=== PATIENT | male | born 1955 | race Caucasian/White ===

== ENCOUNTER → 2023-12-08 14:19 | Outpatient (REF) | payer MEDICARE, OTHER, SELFPAY | LOC: RAD 14:19 | PROVIDERS: ATTENDING PHYSICIAN Nurse Practitioner Family | DX: R05.3 Chronic cough (principal) | CPT/HCPCS: 71046 ==

== ENCOUNTER → 2023-12-09 14:33 | Outpatient (REF) | payer MEDICARE, OTHER, SELFPAY ==
[2023-12-09 14:59] LABS: % Basophils 0.6 % (0-2); % Eosinophils 0.4 % (0-6); % Immature Granulocytes 0.2 % (0-0.5); % Lymphocytes 20.4 % (20.5-51.1); % Monocytes 4.5 % (1.7-9.3); % Neutrophils 73.9 % (42.2-75.2); Absolute Basophils 0.1 10^3/uL (0-0.2); Absolute Lymphocytes 2.1 10^3/uL (1.2-3.4); Absolute Monocytes 0.5 10^3/uL (0.1-0.6); Absolute Neutrophils 7.5 10^3/uL (1.4-6.5); Hematocrit 39.8 % (39.0-52.0); Mean Corp Hgb Conc. 32.7 g/dL (33.0-37.0); Mean Corpuscular Hgb 28.3 pg (27.0-31.0); Mean Corpuscular Volume 86.7 fL (80.0-94.0); Mean Platelet Volume 10.2 fL (7.4-10.4); Nucleated Red Blood Cells % 0 % (-); Platelet Count 257 10^3/uL (130-400); Red Blood Cell Count 4.59 10^6/uL (4.70-6.10); White Blood Cell Count 10.1 10^3/uL (4.8-10.8)
[2023-12-09 15:34] LABS: ALT (SGPT) 13 U/L (0-50); AST (SGOT) 21 U/L (17-59); Alkaline Phosphatase 124 U/L (38-126); Blood Urea Nitrogen 16 mg/dl (9-20); Calcium 9.5 mg/dl (8.4-10.2); Carbon Dioxide 27 mmol/L (22-30); Chloride 101 mmol/L (98-107); Glucose 87 mg/dl (70-99); Potassium 4.3 mmol/L (3.5-5.1); Sodium 137 mmol/L (135-145); Total Bilirubin 0.8 mg/dl (0.2-1.3); Total Protein 7.1 g/dl (6.3-8.2); eGFR > 60.00
== END ==
LOC: REG 14:33
PROVIDERS: ATTENDING PHYSICIAN Nurse Practitioner Family
DX: R93.89 Abnormal findings on diagnostic imaging of other specified body structures (principal); R91.8 Other nonspecific abnormal finding of lung field
CPT/HCPCS: 36415; 80053; 85025

== ENCOUNTER → 2023-12-10 11:38 | Outpatient (REF) | payer MEDICARE, OTHER, SELFPAY | LOC: RAD 11:38 | PROVIDERS: ATTENDING PHYSICIAN Nurse Practitioner Family | DX: R93.89 Abnormal findings on diagnostic imaging of other specified body structures (principal); R91.8 Other nonspecific abnormal finding of lung field | CPT/HCPCS: 71260; Q9967 ==

== ENCOUNTER 2023-12-31 16:10 | Inpatient (IN) | payer MEDICARE, OTHER, SELFPAY ==
[2023-12-31] VITALS (7 sets, daily range): BP systolic 137–177; BP diastolic 91–110; BMI 23.2
[2023-12-31 13:47] LABS: % Basophils 0.9 % (0-2); % Eosinophils 1.1 % (0-6); % Immature Granulocytes 0.2 % (0-0.5); % Lymphocytes 30.1 % (20.5-51.1); % Monocytes 5.7 % (1.7-9.3); Absolute Basophils 0.1 10^3/uL (0-0.2); Absolute Eosinophils 0.1 10^3/uL (0-0.7); Absolute Lymphocytes 2.7 10^3/uL (1.2-3.4); Absolute Monocytes 0.5 10^3/uL (0.1-0.6); Absolute Neutrophils 5.6 10^3/uL (1.4-6.5); Hematocrit 45.1 % (39.0-52.0); Hemoglobin 14.7 g/dL (13.0-18.0); Mean Corp Hgb Conc. 32.6 g/dL (33.0-37.0); Mean Corpuscular Hgb 28.9 pg (27.0-31.0); Mean Corpuscular Volume 88.6 fL (80.0-94.0); Mean Platelet Volume 10.5 fL (7.4-10.4); Nucleated Red Blood Cells % 0 % (-); Platelet Count 261 10^3/uL (130-400); Red Blood Cell Count 5.09 10^6/uL (4.70-6.10); Red Cell Dist. Width 14.1 % (11.5-14.5); White Blood Cell Count 9.1 10^3/uL (4.8-10.8)
[2023-12-31 14:01] LABS: INR 1.01; PT 13.3 Sec (11.4-14.6)
[2023-12-31 14:16] LABS: Troponin I < 0.012 ng/ml
[2023-12-31 14:18] LABS: ALT (SGPT) 17 U/L (0-50); AST (SGOT) 27 U/L (17-59); Albumin 4.5 g/dl (3.5-5.0); Alkaline Phosphatase 115 U/L (38-126); Blood Urea Nitrogen 18 mg/dl (9-20); Calcium 9.9 mg/dl (8.4-10.2); Carbon Dioxide 24 mmol/L (22-30); Chloride 106 mmol/L (98-107); Glucose 94 mg/dl (70-99); Potassium 4.3 mmol/L (3.5-5.1); Sodium 141 mmol/L (135-145); Total Bilirubin 0.8 mg/dl (0.2-1.3); Total Protein 7.3 g/dl (6.3-8.2); eGFR 55.09
--- NOTE | 2023-12-31 14:39 | ED.GENMED ---
History of Present Illness
General
Chief Complaint: Cardiac Symptoms
Time Seen by Provider: 12/31/23 14:16
History of Present Illness
History of Present Illness:
68-year-old male presents to the emergency department for evaluation of abnormal echocardiogram. He notes he has had persistent shortness of breath for the past several weeks after having what he felt was an upper respiratory tract infection.
During the workup for his URI symptoms he had outpatient chest x-ray showing a right lung nodule that had follow-up PET imaging on 12/22 that was unremarkable. Was sent for outpatient echo today and this showed EF of 30% with severe hypokinesis. he
denies leg swelling but does admit to some orthopnea. No chest pain or exertional chest pain
Past History
Past History
ED Past Medical History: Other (Psoriatic arthritis no longer on meds)
ED Past Surgical History: None
Social History
Tobacco: Non-smoker
Alcohol: None
Drug: None
Personal:
Living: with family
Employment: Employed
Review of Systems
Review of Systems
Allergies reviewed?: Yes
All Other Systems: ROS reviewed and negative except as documented in HPI and ROS
Phy Exam
Physical Exam
Physical Exam:
GEN: Well appearing, NAD, WDWN
Eyes: PERRLA, EOMs intact, no scleral icterus
HENT: NCAT, oral mucosa moist, no JVD
Lungs: Normal resp effort. Bibasilar crackles
Cardiac: Tachycardic, no murmurs
Abdomen: S, NT, ND, NABS, no masses or hepatosplenomegaly
Neuro: AO x 3
MSK: No gross deformity or ecchymosis. No edema. No digital clubbing
Skin: No rashes, petechiae. Normal color, no pallor or jaundice.
Psych: Calm, cooperative, proper hygiene
Course
Orders/Labs/Results
Orders:
Orders
12/31/23 13:29
Electrocardiogram (*1) Urgent
Reason for Study: Abnormal EKG
12/31/23 13:30
EKG- Treatment ONCE
12/31/23 13:39
Complete Blood Count/With Diff Urgent
Comprehensive Metabolic Panel Urgent
NT-proBNP Urgent
Comment: ADD ON
PT/INR [Prothrombin Time] Urgent
Troponin I Urgent
12/31/23 14:28
Add On- LAB Urgent
Tests Added?: BNP
CR Chest - 2 Views Urgent
Comment:
Reason For Exam: SOB/CHF
12/31/23 14:42
Furosemide [Lasix] 40 mg IV NOW STA
Abnormal Lab Results
12/31/23
13:39
MCHC 32.6 L g/dL
(33.0-37.0)
MPV 10.5 H fL
(7.4-10.4)
Creatinine 1.4 H mg/dL
(0.7-1.3)
12/31/23 13:39
12/31/23 13:39
Vital Signs
Initial and Last Documented VS:
Initial Vital Signs
Temp Pulse Resp BP Pulse Ox
98.0 F 104 16 170/110 98
12/31/23 13:28 12/31/23 13:28 12/31/23 13:28 12/31/23 13:28 12/31/23 13:28
Last Documented Vital Signs
Temp Pulse Resp BP Pulse Ox
98.0 F 111 25 177/96 98
12/31/23 13:28 12/31/23 14:30 12/31/23 14:30 12/31/23 14:25 12/31/23 13:28
MDM/Problems Addressed
MDM/Problems Addressed:
CXR shows pulmonary edema, will start diuresis and admit for further evaluation and management
*Critical Care Note
Total Time (30-74mins, 75-104mins- exclusive of procedures): Not Applicable
ED Attending Note
-
Portions of this chart may have been created with voice recognition software.� Occasional wrong word or��sound alike� substitutions may have occurred due to the inherent limitations of voice recognition software.
Discharge Plan
Departure
Patient Disposition: Admit
Date of Disposition: 12/31/23
Time of Disposition: 14:48
Admit to: Med/Surg
Presentation/result/management discussed w/ accepting MD/DO: Hospitalist
Discharge Problem:
Acute HFrEF (heart failure with reduced ejection fraction)
Prescriptions:
No Action
azithromycin 250 mg Tablet
0 mg PO .COMPLEX
Rx Instructions:
For 250 mg dose pack: take 500 mg today (day 1), then 250 mg for 4 days (days 2-5)
diphenhydramine HCl [Benadryl] 25 mg Capsule
25 - 50 mg PO HS PRN (Reason: insomnia)
NyQuil D 6.09-93-89-500 mg/15 mL Liquid
10 - 15 ml PO HSPRN PRN (Reason: Insomnia)
albuterol sulfate 90 mcg/actuation Hfa Aerosol Inhaler
2 puff INHALATION PRN PRN (Reason: SOB, Wheezes)
Referrals:
Keaton Hernandez MD [Family Provider] -
Interventions
Interventions:
*Risk Screen - Suicide Last Done: 12/31/23 14:30
*General Assessment Last Done: 12/31/23 14:30
*Neglect/Abuse Screening Last Done: 12/31/23 14:30
*ED COVID-19 Vaccine History Last Done: 12/31/23 14:30
ED- Pulmonary Assessment Last Done: 12/31/23 14:30
ED- Cardiac Assessment Last Done: 12/31/23 14:30
Discharge Date and Time
Print Language: GREENLANDIC
--- NOTE | 2023-12-31 14:44 | CON.CAR ---
Consultation
Consultation Request
Date/Time Consultation Requested: 12/31/2023
Date/Time Consultation Performed: 12/31/2023
Requesting Provider: Dr. Sorto
Performing Provider: Dr. Cuadra
Reason for Consultation: CHF
Medical History
-
Chief Complaint: Shortness of breath
History of Present Illness:
68-year-old male (Snagger) with psoriasis and restrictive lung disease who was referred to the ER after undergoing an abnormal echocardiogram which was ordered by his Manometer Technician today. The patient states that he has been experiencing
shortness of breath over the past month with an associated cough. His echocardiogram today revealed an LVEF of 30-35% with normal regional wall motion abnormalities, moderate MR, and mild to moderate TR, with PASP of 50-55 mmHg. His previous echo
in 2011 revealed an LVEF of 45-50%, but the patient states that he was never told that he had mild heart failure. He denies any recent chest pain or palpitations. He has not noticed any lower extremity swelling.
Past Medical History
Past Medical History: Other (Psoriasis, restrictive lung disease)
Past Surgical History: Other (Rhinoplasty, inguinal hernia repair, cleft palate repair, lipoma removal)
Social History
Tobacco: Non-Smoker
Alcohol: Occasional
Drug: None
Personal: (, at bedside)
Living: With Family
Family History
Family History: CAD (Father had an CO in his 50s and shortly thereafter)
Allergies / Home Medications
Allergy/AdvReac Type Severity Reaction Status Date / Time
infliximab [From Remicade] AdvReac demylination Verified 12/31/23 13:29
of optic
nerve
�Medication �Instructions �Recorded �Confirmed �Type
albuterol sulfate 90 mcg/actuation 2 puff inhalation PRN PRN SOB, 12/30/23 12/30/23 History
aerosol inhaler Wheezes
azithromycin 250 mg tablet 0 mg PO .COMPLEX 12/30/23 12/30/23 History
diphenhydramine HCl 25 mg capsule 25 - 50 mg PO HS PRN insomnia 12/30/23 12/30/23 History
(Benadryl)
vyjisqvil-GWP-PA-acetaminophen 10 - 15 ml PO HSPRN PRN Insomnia 12/30/23 12/30/23 History
6.25 mg-30 [id number]/15mL oral
liqd
Review of Systems
-
All other systems: Negative unless noted
Physical Exam
Vital Signs
Temp Pulse Resp BP Pulse Ox
98.0 F 111 25 177/96 98
12/31/23 13:28 12/31/23 14:30 12/31/23 14:30 12/31/23 14:25 12/31/23 13:28
Lab Results
12/31/23 13:39
12/31/23 13:39
Troponin I < 0.012 ng/ml 12/31/23 13:39
Physical Exam
General: Well Developed, Well Nourished and No Apparent Distress
HEENT: Normocephalic
Respiratory: Clear
Cardiac: S1/S2, Regular Rhythm and Murmur (06/27)
Breast: N/A
GI: Soft and Non Tender
Rectal: Deferred by Provider
Musculoskeletal: No Edema
Skin: Warm and Dry
Neuro: AO x 3
Psych: Calm
Impression / Plan
-
68-year-old male (Snagger) with psoriasis and restrictive lung disease who was referred to the ER after undergoing an abnormal echocardiogram which was ordered by his Manometer Technician today. The patient states that he has been experiencing
shortness of breath over the past month with an associated cough. His echocardiogram today revealed an LVEF of 30-35% with normal regional wall motion abnormalities, moderate MR, and mild to moderate TR, with PASP of 50-55 mmHg. His previous echo
in 2011 revealed an LVEF of 45-50%, but the patient states that he was never told that he had mild heart failure. Found to have mild renal insufficiency today with a creatinine of 1.4.
Acute HFrEF (dilated LV with EF 30-35%):
-With regional wall motion abnormalities, highly concerning for multivessel coronary artery disease.
-Diagnostic cardiac catheterization (right and left heart) will be arranged for tomorrow; NPO after midnight.
-Patient will need to be started on GDMT.
-Recommend Lasix 20 mg IV daily for now.
-Recommend starting Toprol-XL 25 mg daily.
-Give full dose aspirin 325 mg today, then start aspirin 81 mg daily.
-Check lipid panel and hemoglobin A1c.
-monitor worker.
Mild renal insufficiency:
-Creatinine 1.4 on admission.
-Will hold off on starting an JOEY inhibitor/ARB, spironolactone, or Entresto for now.
-Continue to monitor renal function.
Valvular heart disease (moderate MR, mild to moderate TR):
-IV Lasix as above.
Pulmonary nodule/restrictive lung disease:
-Patient was to undergo bronchoscopy at some point in the near future; recommendations/management as per Pulmonary.
Psoriasis:
-Notable risk factor for heart disease.
-Outpatient management with rheumatology.
Data Reviewed
-
EKG: Report Reviewed by me (Sinus rhythm)
Medical Tests (Nuc Med, Echo etc): Image Personally Visualized and interpreted (Dilated LV, LVEF 30-35%; moderate MR; mild to moderate TR, PASP 50-55 mmHg.)
Labs: Labs Reviewed by me and Discussed with Physician (Manometer Technician)
Old Records: Reviewed (Recent pulmonary office record)
[2023-12-31] MEDS: LASIX 40 MG IV ×2 (14:48→21:45)
[2023-12-31 14:51] LABS: NT-proBNP 4850 pg/ml
--- NOTE | 2023-12-31 14:59 | HPS.HSE ---
Family Physician
<AFTAB Almeida - Last Filed: 12/31/23 15:44>
-
Family Physician: Keaton Hernandez
Chief Complaint
<AFTAB Almeida - Last Filed: 12/31/23 15:44>
-
Persistent shortness of breath, cough
History of Present Illness
68-year-old male complaining of persistent shortness of breath with a chronic productive cough changing in color in the beginning of November. He reports he had episode of hemoptysis was sent by his nurse practitioner for outpatient chest x-ray which
showed a right pulmonary nodule he was then referred to pulmonary Dr. Pulido had CT scan showing a primary right lung nodule then had additional PET scan which was normal. He reports pulmonary wanted to do a biopsy via bronchoscopy but wanted
preop evaluation by cardiology. Today he had outpatient EKG with echo showing an ejection fraction of 30% with suspected CHF and was sent to ER for evaluation. He reports he was started yesterday on Z-Sean by his PCP of which she took 500 mg for
this chronic productive cough. He states he smoked only 1 to 2 years in his teens. He denies family history of lung cancer states maternal grandmother had TB. He denies current fever, chills, weight loss, chest pain, palpitations, abdominal pain,
nausea, vomiting, diarrhea, urinary symptoms.
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
Cat bite right hand June 2023 treated empirically with antibiotics.
Medical History
<AFTAB Almeida - Last Filed: 12/31/23 15:44>
Past Medical History
Past Medical History: Reports Other
Additional Past Medical History:
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
BPH
Cat bite right hand June 2023 treated empirically with antibiotics.
Insomnia
Past Surgical History: Reports Other
Additional Past Surgical History:
cleft palate repair as a child
Social History
Tobacco: Former Smoker (Smoked 1 to 2 years as a teenager)
Alcohol: Occasional (Every 6 months)
Drug: None
Living: With Family
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
Family History
Family History: Other (Maternal grandmother TB, father CAD [place] age 72)
Allergies / Home Medications
Allergies reflects when Allergies were last updated in [employer].
Home Medications with original date entered in [employer]
Allergy/Medication List:
Allergies
Allergy/AdvReac Type Severity Reaction Status Date / Time
infliximab [From Remicade] AdvReac demylination Verified 12/31/23 13:29
of optic
nerve
Home Medications
azithromycin 250 mg tablet 250 mg PO NOON 12/30/23
diphenhydramine HCl 25 mg capsule (Benadryl) 25 mg PO HSPRN PRN insomnia 12/30/23
mvhlolcjl-YLH-UK-acetaminophen 6.25 mg-30 va-[id number]-490uj/15mL oral liqd 5 ml PO HSPRN PRN Insomnia 12/30/23
Review of Systems
Raullt;AFTAB Almeida - Last Filed: 12/31/23 15:44>
-
History Source: Patient and Family ( Jurgen at bedside)
A 12 point ROS was completed and negative except as noted: Yes
Constitutional: Denies Fever, Weight Loss or Fatigue
EENT: Denies Sore Throat
Respiratory: Reports Cough and Trouble Breathing
Cardiac: Denies Chest Pain, Diaphoresis, Palpitations or Syncope
Abdomen/GI: Denies Abdominal Pain, Nausea, Vomiting, Diarrhea or Constipated
: Denies Dysuria, Frequency, Flank Pain, Incontinence or Difficulty Voiding
Musculoskeletal: Denies Joint Pain or Edema
Skin: Denies Itching or Rash
Neurological: Denies Dizzy, Headache or Weakness
Endocrine: Reports No Symptoms
Hematologic/Lymphatic: Reports No Symptoms
Psych: Reports Calm
Physical Exam
<AFTAB Almeida - Last Filed: 12/31/23 15:44>
Vital Signs
Vital Signs
Temp Pulse Resp BP Pulse Ox
98.0 F 111 25 177/96 98
12/31/23 13:28 12/31/23 14:30 12/31/23 14:30 12/31/23 14:25 12/31/23 13:28
Physical Exam
General: Comfortable and Conversant; No Pain, Fever or Chills
HEENT: NormoCephalic, Anicteric, Moist mucous membranes, PERRLA and [place] Conjunctivae
Respiratory: Clear; No Wheezes, Rales or Rhonchi
Cardiac: S1/S2 and Regular Rhythm; No Murmur, Rub, Gallop or Peripheral Edema
Breast: Deferred by me
GI: Soft, Non Tender, Non Distended, Normal Bowel Sounds and No Hepatosplenomegaly
Rectal: Deferred by Provider
Genito-urinary: Deferred by me
Musculoskeletal: No Clubbing, No Cyanosis and No Edema
Skin: Warm and Dry; No Rash
Neuro: AO x 3, No Motor Deficits, Nonfocal/grossly intact, Cranial Nerves Intact and No Sensory Deficits; No DTR's Intact & Symmetrical, Slurred Speech, Facial Droop, Tremors or Sedated
Psych: Calm
Laboratory Results
<AFTAB Almeida - Last Filed: 12/31/23 15:44>
-
12/31/23 13:39
12/31/23 13:39
Laboratory Results
PT 13.3 Sec (11.4-14.6) 12/31/23 13:39
INR 1.01 12/31/23 13:39
Total Bilirubin 0.8 mg/dl (0.2-1.3) 12/31/23 13:39
AST 27 U/L (17-59) 12/31/23 13:39
ALT 17 U/L (0-50) 12/31/23 13:39
Alkaline Phosphatase 115 U/L (38-126) 12/31/23 13:39
Troponin I < 0.012 ng/ml 12/31/23 13:39
Data Reviewed
<AFTAB Almeida - Last Filed: 12/31/23 15:44>
-
Lab Data: Labs Reviewed by me
Impression/Plan
<AFTAB Almeida - Last Filed: 12/31/23 15:44>
-
Impression/plan:
Admit to IMU
#Acute CHF NEW /NEW CARDIOMYOPATHY EF 30-35%
BNP 4850, 98% RA
I/O, daily weights
-Consult CBC cardiology
- Iv Lasix 40 mg bid
- KCL 20 meq daily
-Carvedilol 3.125 mg twice daily
-N.p.o. for possible cath in a.m.
-Further goal-directed medical therapy for HF to be decided
2D echo 12/31/2023: EF 30-35%, dilated left ventricle 6.1 cm.
Mild to moderate global hypokinesis with more prominent severe basal to mid anteroseptal, inferior septal and inferior hypokinesis.
Severely dilated left atrium. Moderate dilated right atrium
Moderate MR
Aortic sclerosis without stenosis. Mild aortic regurg
Mild to moderate TR
Pulm arterial pressure 50-55 mmHg
--- Previous echo 01/07/2012 EF 45-50% no wall abnormalities--
#Right and left pulmonary nodules�NEW
-Patient follows with Dr. Pulido plan was for bronchoscopy with biopsy after cardiac eval
PET scan 12/10/2023: 5 mm solid pulmonary nodule in the right lower lobe.
14 x 7 mm solid pulmonary nodule in the right lower lobe.
8 mm solid pulmonary nodule in the left lower lobe nodules are without evidence of significant FDG uptake small bilateral pleural effusions
#URI November 2023 with persistent cough
Was started on Z-Sean yesterday for cough we will hold as do not suspect pneumonia patient afebrile no WBC count
#Prolonged QTc�470 MS
-Hold prolonging QTc agents
EKG: Sinus tach 106 bpm, QTc 470 MS no significant change from December 29, 2023
#Hypertension�new
177/96
- START Carvedilol 3.125 mg twice daily
#CKD 3A
Creat 1.4 baseline appears 1.2
follow bmp
#Hx psoriatic arthritis
-Was on Remicade 20 years ago where he had demyelinization of the right optic nerve and therefore was discontinued
#BPH
Continue finasteride with hold parameters
-Monitor urine output with bladder scans
DVT prophylaxis
Subcu Lovenox
Full code
<Anika Joyner MD - Last Filed: 12/31/23 16:08>
-
Impression/plan:
Admit to IMU
#Acute CHF NEW /NEW CARDIOMYOPATHY EF 30-35%
BNP 4850, 98% RA
I/O, daily weights
-Consult CBC cardiology
- Iv Lasix 40 mg bid
- KCL 20 meq daily
-Carvedilol 3.125 mg twice daily
-N.p.o. for possible cath in a.m.
-Further goal-directed medical therapy for HF to be decided
2D echo 12/31/2023: EF 30-35%, dilated left ventricle 6.1 cm.
Mild to moderate global hypokinesis with more prominent severe basal to mid anteroseptal, inferior septal and inferior hypokinesis.
Severely dilated left atrium. Moderate dilated right atrium
Moderate MR
Aortic sclerosis without stenosis. Mild aortic regurg
Mild to moderate TR
Pulm arterial pressure 50-55 mmHg
--- Previous echo 01/07/2012 EF 45-50% no wall abnormalities--
#Right and left pulmonary nodules�NEW
-Patient follows with Dr. Pulido plan was for bronchoscopy with biopsy after cardiac eval
PET scan 12/10/2023: 5 mm solid pulmonary nodule in the right lower lobe.
14 x 7 mm solid pulmonary nodule in the right lower lobe.
8 mm solid pulmonary nodule in the left lower lobe nodules are without evidence of significant FDG uptake small bilateral pleural effusions
#URI November 2023 with persistent cough
Was started on Z-Sean yesterday for cough we will hold as do not suspect pneumonia patient afebrile no WBC count
#Prolonged QTc�470 MS
-Hold prolonging QTc agents
EKG: Sinus tach 106 bpm, QTc 470 MS no significant change from December 29, 2023
#Hypertension�new
177/96
- START Carvedilol 3.125 mg twice daily
#CKD 3A
Creat 1.4 baseline appears 1.2
follow bmp
#Hx psoriatic arthritis
-Was on Remicade 20 years ago where he had demyelinization of the right optic nerve and therefore was discontinued
#BPH
Continue finasteride with hold parameters
-Monitor urine output with bladder scans
DVT prophylaxis
Subcu Lovenox
Full code
I saw and examined the patient.
The CORPORATE LOGISTICS MANAGER or PA's note was reviewed and I agree with the note.
Comment:
68 years old male who was being evaluated for pulmonary nodule and recently given Zithromax for cough presented for newly diagnosed heart failure. Patient reported exertional shortness of breath and cough for a while.
His reported shortness of breath while sleeping.
Physical Exam
General: Comfortable and Conversant; No Pain, Fever or Chills
HEENT: NormoCephalic, Anicteric, Moist mucous membranes, PERRLA and [place] Conjunctivae
Respiratory: Clear; No Wheezes, Rales or Rhonchi
Cardiac: S1/S2 and Regular Rhythm; tachycardia, I did not appreciate heart murmur
GI: Soft, Non Tender, Non Distended, Normal Bowel Sounds
Genito-urinary: No hematuria
Musculoskeletal: No Clubbing, No Cyanosis and No Edema
Skin: Warm and Dry; No Rash
Neuro: AO x 3, No Motor Deficits, Nonfocal/grossly intact, Cranial Nerves Intact and No Sensory Deficits; No Slurred Speech, Facial Droop, Tremors or Sedated
Psych: Calm
A/P:
# Newly diagnosed acute systolic heart failure
Chest x-ray consistent with cardiomegaly and pulmonary congestion
Elevated proBNP
Negative troponin
EKG sinus tachycardia
History of coronary artery disease in the family
Elevated blood pressure, suspect primary untreated hypertension
Patient presented with persistent cough and exertional shortness of breath for a while
Recent viral illness, possible tachycardia induced cardiomyopathy
Admit the patient to telemetry/IVU
Start the patient on IV diuretic therapy with a prophylactic potassium supplement
Daily weight
Start low-dose carvedilol which will help with sinus tachycardia
Check lipid panel
Further GMDT after ischemic workup including coronary angiography
Appreciate cardiology input
# Newly diagnosed untreated primary hypertension
No headache.
No chest pain
Start the patient on low-dose carvedilol and Lasix
# Acute kidney injury
Creatinine 1.3 in November 2023
Check urine sodium
No hematuria. History of BPH
Possible prerenal
Monitor for retention
# Recent workup for pulmonary nodules.
# DVT prophylaxis
Total time spent to see the patient, examine the patient, review data and lab results, and discuss the treatment plan with patient, ER doctor, and nurse around 75 minutes
[2023-12-31] MEDS: COREG 3.125 MG PO (15:55)
--- NOTE | 2023-12-31 18:00 | PTCARENOTE ---
Received patient by stretcher from ED. Patient steady on feet. VSS, NST. No complaints. Updated on plan. Will closely monitor.
[2023-12-31] MEDS: KCL 20 MEQ PO (19:13)
[2023-12-31] MEDS: LOVENOX 40 MG SC (19:13)
--- NOTE | 2023-12-31 22:30 | PTCARENOTE ---
Pt states he takes Pepcid HS at home for reflux, and Benadryl for cough and insomnia. Pt requesting this be ordered for him to take this evening. PAINTING WORKER notified. order received for medication.
[2023-12-31] MEDS: PEPCID 20 MG PO (22:38)
[2023-12-31] MEDS: BENADRYL 25 MG PO (22:38)
[2024-01-01] VITALS (22 sets, daily range): BP systolic 100–140; BP diastolic 76–102; PULSE 83–86; O2SAT 98–99; BMI 22.1
[2024-01-01 04:29] LABS: % Basophils 0.9 % (0-2); % Eosinophils 0.5 % (0-6); % Immature Granulocytes 0.1 % (0-0.5); % Lymphocytes 18.1 % (20.5-51.1); % Monocytes 5.5 % (1.7-9.3); % Neutrophils 74.9 % (42.2-75.2); Absolute Basophils 0.1 10^3/uL (0-0.2); Absolute Lymphocytes 1.3 10^3/uL (1.2-3.4); Absolute Monocytes 0.4 10^3/uL (0.1-0.6); Absolute Neutrophils 5.6 10^3/uL (1.4-6.5); Hematocrit 45.2 % (39.0-52.0); Hemoglobin 14.9 g/dL (13.0-18.0); Mean Corpuscular Hgb 28.5 pg (27.0-31.0); Mean Corpuscular Volume 86.6 fL (80.0-94.0); Mean Platelet Volume 10.6 fL (7.4-10.4); Nucleated Red Blood Cells % 0 % (-); Platelet Count 244 10^3/uL (130-400); Red Blood Cell Count 5.22 10^6/uL (4.70-6.10); White Blood Cell Count 7.4 10^3/uL (4.8-10.8)
[2024-01-01 05:07] LABS: ALT (SGPT) 17 U/L (0-50); AST (SGOT) 25 U/L (17-59); Albumin 4.4 g/dl (3.5-5.0); Alkaline Phosphatase 122 U/L (38-126); Blood Urea Nitrogen 20 mg/dl (9-20); Calcium 9.9 mg/dl (8.4-10.2); Carbon Dioxide 31 mmol/L (22-30); Chloride 100 mmol/L (98-107); Estimated Creatinine Clearance 50 ml/min; Glucose 112 mg/dl (70-99); HDL Cholesterol 80 mg/dl; LDL Cholesterol, Calculated 98 mg/dl; Potassium 4.5 mmol/L (3.5-5.1); Sodium 141 mmol/L (135-145); Total Bilirubin 1.3 mg/dl (0.2-1.3); Total Cholesterol 201 mg/dl (50-199); Total Protein 7.3 g/dl (6.3-8.2); Triglyceride 118 mg/dl (10-149); Very Low Density Lipoprotein 23 mg/dl (0-30); eGFR 55.09
--- NOTE | 2024-01-01 06:56 | W.PN.HOSP.TC ---
Today's Communication/Plan
-
NPO
Hold Lasix for cath
c/w low dose BB
Assessment / Plan
Assessment / Plan
Physical Exam
General: Comfortable and Conversant; No Pain, Fever or Chills
HEENT: NormoCephalic, Anicteric, Moist mucous membranes, PERRLA and [place] Conjunctivae
Respiratory: Clear; No Wheezes, Rales or Rhonchi
Cardiac: S1/S2 and Regular Rhythm; tachycardia, I did not appreciate heart murmur
GI: Soft, Non Tender, Non Distended, Normal Bowel Sounds
Genito-urinary: No hematuria
Musculoskeletal: No Clubbing, No Cyanosis and No Edema
Skin: Warm and Dry; No Rash
Neuro: AO x 3, No Motor Deficits, Nonfocal/grossly intact, Cranial Nerves Intact and No Sensory Deficits; No Slurred Speech, Facial Droop, Tremors or Sedated
Psych: Calm
A/P:
# Newly diagnosed acute systolic heart failure
Chest x-ray consistent with cardiomegaly and pulmonary congestion
Elevated proBNP
Negative troponin
EKG sinus tachycardia
History of coronary artery disease in the family
Elevated blood pressure, suspect primary untreated hypertension
Patient presented with persistent cough and exertional shortness of breath for a while
Recent viral illness, possible tachycardia induced cardiomyopathy
c/w telemetry
Start the patient on IV diuretic therapy with a prophylactic potassium supplement
Daily weight, lost weight
Started low-dose carvedilol which will help with sinus tachycardia
Further GMDT after ischemic workup including coronary angiography. Pt is NPO
Appreciate cardiology input
# Newly diagnosed untreated primary hypertension
No headache.
No chest pain
Start the patient on low-dose carvedilol and Lasix
# Acute kidney injury
Creatinine 1.3 in November 2023
Creatinine stable at 1.4
No hematuria. History of BPH
Possible prerenal
Monitor for retention
# Recent workup for pulmonary nodules.
# DVT prophylaxis
Total time spent to see the patient, examine the patient, review data and lab results, and discuss the treatment plan with patient and nurse around 55 minutes
Anticipated Discharge: 24 - 48 hours
Subjective/Interval History
-
Date of Service: January 01, 2024
Anxious, couldn't sleep
Some leg cramps
No sob or chest pain
Objective Data
-
Labs:
Laboratory Results
01/01/24
04:19
WBC 7.4
Hgb 14.9
Hct 45.2
Plt Count 244
Sodium 141
Potassium 4.5
Chloride 100
Carbon Dioxide 31 H
BUN 20
Creatinine 1.4 H
Glucose 112 H
Calcium 9.9
Total Bilirubin 1.3
AST 25
ALT 17
Alkaline Phosphatase 122
Vital Signs:
Vital Signs
Temp Pulse Resp BP Pulse Ox
97.5 F 96 19 126/84 100
01/01/24 04:28 01/01/24 03:45 01/01/24 03:45 01/01/24 02:00 01/01/24 04:30
I&O
12/30/23 12/31/23 01/01/24
06:59 06:59 06:59
Output Total 400 / 400
Balance -400 / -400
[2024-01-01] MEDS: KCL 20 MEQ PO (08:14)
[2024-01-01] MEDS: COREG 3.125 MG PO ×2 (08:15→20:02)
--- NOTE | 2024-01-01 08:17 | PTCARENOTE ---
Cannot verify VS captured from prior shift.
--- NOTE | 2024-01-01 09:46 | PTOTSP ---
The patient is independent with ambulation and elevations, no mobility deficits noted. The patient is interested in Outpatient Cardiac Rehab if indicated by Machine Stacker. No PT needs identified at this time, will sign off.
[2024-01-01] MEDS: LOW STRENGTH ASPIRIN 324 MG PO (12:55)
--- NOTE | 2024-01-01 13:41 | PTCARENOTE ---
Pt presents as assessed. Anxious re plan for cath, emotional support provided. Report given to refuse laborer RN. Transferred to outside laborer with RN's via bed.
--- NOTE | 2024-01-01 14:10 | ITS.CL.CATH ---
Lead Machinist - Catheterization
Cardiac Catheterization
Procedure Report:
CARDIAC CATHETERIZATION REPORT
Date of Procedure: 01/01/2024
Referring: Carlos Manuel Parks MD
Indication: Cardiomyopathy with CHF
HEMODYNAMIC DATA
AO: 141/64
LV: 141/15
LEFT VENTRICULOGRAPHY: Severe global hypokinesis with EF 31%
CORONARY ANGIOGRAPHY
Dominance: Right
Left Main: Normal
LAD: 10-20% proximal D1 stenosis with otherwise no disease in the LAD
Circumflex: Normal
RCA: Normal dominant vessel
Closure Device: None-the procedure was performed via the right radial artery. The Malcom's test was normal prior to the procedure.
Radiation dose (mGy): 113
DAP (cm2.Gy): 11.4
Fluoroscopy time: 2.0 minutes
CONCLUSIONS:
1. Severe global hypokinesis with EF 31%
2. No evidence of obstructive CAD
RECOMMENDATIONS: Findings consistent with idiopathic dilated cardiomyopathy. We will add Entresto 24/ twice daily starting in AM. Lasix currently 20 mg IV twice daily will be changed to 40 mg p.o. every morning. KCl will be stopped as we will
be adding spironolactone 25 mg daily. Follow BMP to decide whether supplemental potassium will be needed
Copy to: Carlos Manuel Parks MD, Keaton Hernandez MD
Ceasar Rodriguez MD, [facility], [facility]
--- NOTE | 2024-01-01 14:33 | PTCARENOTE ---
Pt received from laboratory phlebotomist. Pt in good spirits and feeling well. Site checks as documented, see intervention.
--- NOTE | 2024-01-01 15:04 | CM ---
Patient with Dx New HF, New hypertension. Cardiac cath today. PT & OT; No skilled PT/OT needed.
Met with patient and his Tk;
the patient resides with his and their 2 cats in a 2 story townhouse.
He has been independent in ADLs and ambulation.
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
He has no DME or prior VN.
PCP - Keaton Hernandez
Pharmacy - [facility]
Offered [facility] for Heart Failure Education and patient agrees.
Referral placed.
Plan home with [facility]
--- NOTE | 2024-01-01 17:39 | PTCARENOTE ---
Pt with slight oozing when attempting to remove final 2cc of air from radial band. 2cc reinflated per shagufta, Deya UGALDE notified via TT. Advised to leave 2cc in place for an additional 30 minutes and try again.
[2024-01-01] MEDS: LOVENOX 40 MG SC (18:16)
[2024-01-02] VITALS (9 sets, daily range): BP systolic 111–132; BP diastolic 72–94; BMI 22.1
[2024-01-02 04:25] LABS: % Basophils 1.1 % (0-2); % Eosinophils 2.5 % (0-6); % Immature Granulocytes 0.3 % (0-0.5); % Lymphocytes 29.6 % (20.5-51.1); % Monocytes 7.2 % (1.7-9.3); % Neutrophils 59.3 % (42.2-75.2); Absolute Basophils 0.1 10^3/uL (0-0.2); Absolute Eosinophils 0.2 10^3/uL (0-0.7); Absolute Lymphocytes 2.3 10^3/uL (1.2-3.4); Absolute Monocytes 0.6 10^3/uL (0.1-0.6); Absolute Neutrophils 4.7 10^3/uL (1.4-6.5); Hematocrit 44.9 % (39.0-52.0); Mean Corp Hgb Conc. 33.4 g/dL (33.0-37.0); Mean Corpuscular Hgb 28.8 pg (27.0-31.0); Mean Corpuscular Volume 86.2 fL (80.0-94.0); Mean Platelet Volume 10.2 fL (7.4-10.4); Nucleated Red Blood Cells % 0 % (-); Platelet Count 232 10^3/uL (130-400); Red Blood Cell Count 5.21 10^6/uL (4.70-6.10); White Blood Cell Count 7.9 10^3/uL (4.8-10.8)
[2024-01-02 04:49] LABS: ALT (SGPT) 14 U/L (0-50); AST (SGOT) 23 U/L (17-59); Albumin 4.2 g/dl (3.5-5.0); Alkaline Phosphatase 116 U/L (38-126); Blood Urea Nitrogen 27 mg/dl (9-20); Calcium 9.7 mg/dl (8.4-10.2); Carbon Dioxide 27 mmol/L (22-30); Chloride 101 mmol/L (98-107); Estimated Creatinine Clearance 54 ml/min; Glucose 99 mg/dl (70-99); Potassium 4.2 mmol/L (3.5-5.1); Sodium 136 mmol/L (135-145); Total Bilirubin 1.3 mg/dl (0.2-1.3); Total Protein 6.8 g/dl (6.3-8.2); eGFR > 60.00
--- NOTE | 2024-01-02 05:29 | PTCARENOTE ---
Assessment done and charted. AAOx3 anxious at times. External pressure taken off without any issues. VS. NSR w/ PVC in the monitor. Pt appeared comfortable throughout the shift and call clayton within reach.
--- NOTE | 2024-01-02 06:53 | W.PN.HOSP.TC ---
Addendum entered and electronically signed by Anika Joyner MD 01/02/24 15:07:
Addendum
d/w cardiology, ok to dc
Total discharge time spent to see the patient, examine the patient, review data and lab results, and discuss the discharge plan with patient, nurse around 65 minutes
Original Note:
Today's Communication/Plan
-
.
Assessment / Plan
Assessment / Plan
Physical Exam
General: Comfortable and Conversant; No Pain, Fever or Chills
HEENT: NormoCephalic, Anicteric, Moist mucous membranes, PERRLA and [place] Conjunctivae
Respiratory: Clear; No Wheezes, Rales or Rhonchi
Cardiac: S1/S2 and Regular Rhythm; tachycardia, I did not appreciate heart murmur
GI: Soft, Non Tender, Non Distended, Normal Bowel Sounds
Genito-urinary: No hematuria
Musculoskeletal: No Clubbing, No Cyanosis and No Edema
Skin: Warm and Dry; No Rash
Neuro: AO x 3, No Motor Deficits, Nonfocal/grossly intact, Cranial Nerves Intact and No Sensory Deficits; No Slurred Speech, Facial Droop, Tremors or Sedated
Psych: Calm
A/P:
# Newly diagnosed acute systolic heart failure
Chest x-ray consistent with cardiomegaly and pulmonary congestion
Elevated proBNP
Negative troponin
EKG sinus tachycardia
History of coronary artery disease in the family
Elevated blood pressure, suspect primary untreated hypertension
Patient presented with persistent cough and exertional shortness of breath for a while
Recent viral illness, possible tachycardia induced cardiomyopathy
Plan
s/p cath on 12/[address] Rodriguez with findings of Severe global hypokinesis with EF 31%, no evidence of obstructive CAD
c/w telemetry
c/w Lasix, changed to oral 40 mg QD
started on Entresto and Aldactone
c/w low dose Carvedilol
LDL 98
Will send labs to rule out viral CMP as HIV/Hep. panel . Hx of positive hepatitis B screen but did not need treatment.
Appreciate cardiology input
# Newly diagnosed untreated primary hypertension
No headache.
No chest pain
Start the patient on new medications, monitor for tolerance
# Acute kidney injury
Creatinine 1.3 in November 2023
Creatinine down to 1.3
No hematuria. History of BPH
Monitor for retention
# Recent workup for pulmonary nodules.
# DVT prophylaxis
Total time spent to see the patient, examine the patient, review data and lab results, and discuss the treatment plan with patient and nurse around 55 minutes
Anticipated Discharge: 24 - 48 hours
Subjective/Interval History
-
Date of Service: January 02, 2024
No chest pain
No sob , able to stay flat without SOB
Objective Data
-
Labs:
Laboratory Results
01/02/24
04:01
WBC 7.9
Hgb 15.0
Hct 44.9
Plt Count 232
Sodium 136
Potassium 4.2
Chloride 101
Carbon Dioxide 27
BUN 27 H
Creatinine 1.3
Glucose 99
Calcium 9.7
Total Bilirubin 1.3
AST 23
ALT 14
Alkaline Phosphatase 116
Vital Signs:
Vital Signs
Temp Pulse Resp BP Pulse Ox
97.4 F 90 12 132/94 100
01/02/24 04:00 01/02/24 04:00 01/02/24 04:00 01/02/24 04:00 01/02/24 04:00
I&O
12/31/23 01/01/24 01/02/24
06:59 06:59 06:59
Intake Total 240 / 240
Output Total 400 / 400
Balance -400 / -400 240 / 240
[2024-01-02] MEDS: ALDACTONE 25 MG PO (09:03)
[2024-01-02] MEDS: COREG 3.125 MG PO (09:04)
[2024-01-02] MEDS: ENTRESTO 24 MG/26 MG 1 TAB PO (09:05)
[2024-01-02] MEDS: LASIX 40 MG PO (09:06)
--- NOTE | 2024-01-02 11:39 | PTCARENOTE ---
Patient ambulating to BR independently. Out of bed to chair. Denies any pain or discomfort, denies SOB. Sp02 98% on room air. VS stable.
--- NOTE | 2024-01-02 11:52 | W.PN.CD ---
Today's Communication / Plan
-
-No significant coronary artery disease on cardiac catheterization yesterday.
-Continue current doses of Coreg, furosemide, spironolactone, and Entresto.
-Will add Jardiance 10 mg daily.
-Cardiac rehabilitation as outpatient.
-Outpatient monitoring of renal function as patient is now on furosemide, spironolactone, and Entresto.
-Stable for discharge to home today; outpatient follow-up with Cardiology.
Impression / Plan
-
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 The patient states that he has been experiencing
shortness of breath over the past month with an associated cough. His echocardiogram today revealed an LVEF of 30-35% with normal regional wall motion abnormalities, moderate MR, and mild to moderate TR, with PASP of 50-55 mmHg. His previous echo
in 2011 revealed an LVEF of 45-50%, but the patient states that he was never told that he had mild heart failure. Found to have mild renal insufficiency today with a creatinine of 1.4.
Acute HFrEF (dilated LV with EF 30-35%):
-No significant coronary artery disease on cardiac catheterization yesterday.
-Continue current doses of Coreg, furosemide, spironolactone, and Entresto.
-Will add Jardiance 10 mg daily.
-Cardiac rehabilitation as outpatient.
-Stable for discharge to home today; outpatient follow-up with Cardiology.
Mild renal insufficiency:
-Creatinine 1.4 on admission, improved to 1.3 today.
-Outpatient monitoring of renal function as patient is now on furosemide, spironolactone, and Entresto.
Valvular heart disease (moderate MR, mild to moderate TR):
-Stable volume status.
-Medications as above.
Pulmonary nodule/restrictive lung disease:
-Patient was to undergo bronchoscopy at some point in the near future; recommendations/management as per Pulmonary.
Psoriasis:
-Outpatient management with rheumatology.
Physical Exam
Vital Signs/Labs
Vital Signs
Temp Pulse Resp BP Pulse Ox
98.2 F 80 23 124/72 98
01/02/24 11:05 01/02/24 10:00 01/02/24 10:00 01/02/24 10:00 01/02/24 10:00
01/01/24 01/02/24 01/03/24
06:59 06:59 06:59
Actual Weight 69.717 kg 69.882 kg
01/02/24 04:01
01/02/24 04:01
PT 13.3 Sec (11.4-14.6) 12/31/23 13:39
INR 1.01 12/31/23 13:39
Triglycerides 118 mg/dl (10-149) 01/01/24 04:19
LDL Cholesterol, Calc 98 mg/dl 01/01/24 04:19
VLDL Cholesterol, Calc 23 mg/dl (0-30) 01/01/24 04:19
HDL Cholesterol 80 mg/dl 01/01/24 04:19
12/31/23
13:39
Evg-T-Uwdbxvbedlx Pept 4850
LAB Results
12/31/23
13:39
Troponin I < 0.012
Physical Exam
Constitutional: No acute distress and Comfortable
EENT: Anicteric
Cardiovascular: Rhythm & rate is regular, Pedal edema is absent, Systolic murmur present (2/6) and S1S2 is normal
Respiratory: Respiratory effort normal and Lungs clear to auscul.
GI: Soft
Neuro/Psych: AO x 3
Other: Skin (Warm, dry, intact)
Data Reviewed
-
Date of Service: January 02, 2024
EKG: Tracing Personally Visualized and interpreted (Telemetry: Sinus rhythm)
Medical Tests (PFT, Pathology etc): Discussed with Physician (Primary Hospitalist), Discussed with Patient and Discussed with Family (, at bedside)
Labs: Labs Reviewed by me
[2024-01-02] MEDS: JARDIANCE 10 MG PO (12:40)
--- NOTE | 2024-01-02 14:41 | W.DCSUMMARY ---
Addendum entered and electronically signed by Anika Joyner MD 01/02/24 17:21:
Addendum
Entersto was replaced with Diovan 80 mg QD due to cost.
End
Original Note:
Discharge Summary
Discharge Data
Date of Admission: 12/31/23
Date of Discharge: 01/02/24
-
Pending Results: No
Hospital Course
68 years old male presented with newly diagnosed heart failure. Patient was found to have depressed left ventricular function on outpatient echocardiogram and he was sent to the hospital. Patient reported that he was struggling with exertional
shortness of breath and cough for a while. These complaints prompted pulmonary workup that showed presence of pulmonary nodules. He was in process to be evaluated for invasive procedure and he was getting cardiac clearance. Patient had
echocardiogram that showed left ventricular function 30-35% with moderate global hypokinesis. Patient denied personal history of heart disease. His father had history of coronary artery disease/heart disease. Patient did not have chest pain.
Patient had signs of congestive heart failure with elevated proBNP, chest radiography consistent with mild pulmonary congestion. Patient was given diuretic treatment with intravenous furosemide and started to feel better. He underwent cardiac
catheterization on 01/01/[address] Rodriguez that showed globally depressed left ventricular with ejection fraction around 31%, nonobstructive coronary artery disease. Patient denied history of alcohol intake. He had history of recent viral infection.
Negative COVID test in outpatient setting. Patient reported history of hepatitis B but no specific treatment as his blood work did not show antigen. He denied history of other viral infections. Patient was started on guideline goal-directed
medical therapy with Entresto, Aldactone, furosemide carvedilol. He was counseled regarding the importance of compliance, potential side effect and follow-up. He was counseled to monitor blood pressure regularly at home. Patient was going to
follow-up with cardiology and primary care doctor. Patient remained hemodynamically stable and was discharged in a stable condition
Discharge Plan
-
Patient Disposition: Home (Routine Discharge)
Discharge Diagnosis/Procedures: Acute heart failure with reduced ejection fraction status post cardiac catheterization.
Newly diagnosed untreated primary hypertension
Acute kidney injury
Pulmonary nodule/restrictive lung disease
Diet: 2 Gram Sodium and Restrict fluids to 48 oz
Driving Restrictions: No driving for 24 hours
Specialty Instructions: Weigh Daily- Call MD for wt gain/loss 3 lbs overnight/5 lbs in 1 week
Instructions: *CBC Heart Failure Instructions
Stand Alone Forms: DC Instructions- Cath/EP Lab
Referrals:
Lauren Segal CRNP [Specified Professional Personl] - 01/22/24 10:40 am (Cardiology followup appointment)
Keaton Hernandez MD [Family Provider] - in one to two weeks
Prescriptions:
New
spironolactone 25 mg Tablet
25 mg PO DAILY Qty: 30 0RF
carvedilol 3.125 mg Tablet
3.125 mg PO BID Qty: 60 0RF
Entresto 24-26 mg Tablet
1 tab PO BID Qty: 60 0RF
Jardiance 10 mg Tablet
10 mg PO DAILY Qty: 30 0RF
furosemide 40 mg Tablet
40 mg PO DAILY Qty: 30 0RF
Continued
diphenhydramine HCl [Benadryl] 25 mg Capsule
25 mg PO HSPRN PRN (Reason: insomnia)
skuvjltuf-PHM-AX-acetaminophen 6.09-15-69-500 mg/15 mL Liquid
5 ml PO HSPRN PRN (Reason: Insomnia)
Discontinued
azithromycin 250 mg Tablet
250 mg PO NOON
Patient Comments:
12/31/23: filled 12/29/23, to take 2 tablets once a day on the first day, then 1 tablet once a day for the next 4 days
Discharge Orders:
Discharge Patient (As Directed); Ordered 01/02/24
Ordered By: Anika Joyner
Discharge Date and Time
Print Language: K[place]
--- NOTE | 2024-01-02 15:46 | CM ---
Patient seen bedside.
IMM completed.
Plan: D/C home with VN
--- NOTE | 2024-01-04 12:10 | W.HF.CON ---
Heart Failure
- LV Function
Left ventricular function study result: LV Ejection fraction </= 35%
Ejection Fraction Percentage: 30-35
- ARNI
Patient already on ARNI: No
Heart Failure ARNI Contraindication: Acute Renal Failure
- ACEI/ARB
Patient already on ACEI/ARB: Yes
- Beta Surekha
Patient already on Evidence Based Beta Surekha: Yes
- Mineralocorticord Receptor Antagonist
Patient already on MRA: Yes
- SGLT-2 Inhibitor
Patient already on SGLT-2 Inhibitor: Yes
- NYHA CHF Classification
NYHA CHF Classification Level: Class III - Symptoms w/ min exertion, interferes w/ nml daily activity
- ACC/AHA Stage
ACC/AHA Stage: Stage C: Symptomatic Heart Failure
[2024-01-04 19:31] LABS: Hepatitis B Surface Antigen Negative (Negative)
[2024-01-04 19:49] LABS: Hepatitis B Core Ab, Total Reactive (Negative); Hepatitis C Antibody Negative (Negative)
[2024-01-05 11:52] LABS: HIV Combo Negative (Negative)
== END 2024-01-02 17:38 | disposition home health service (06) | DRG 286 ==
LOC: IMU 16:10
PROVIDERS: Clinical Nurse Specialist Family Health; Internal Medicine Cardiovascular Disease; ADMITTING PHYSICIAN Internal Medicine; CONSULT PHYSICIAN Internal Medicine; EMERGENCY PHYSICIAN Emergency Medicine; FAMILY PHYSICIAN Internal Medicine Geriatric Medicine
PROC: B2111ZZ Fluoroscopy of Multiple Coronary Arteries using Low Osmolar Contrast (ICD-10-PCS; 2024-01-01)
PROC: 4A023N8 Measurement of Cardiac Sampling and Pressure, Bilateral, Percutaneous Approach (ICD-10-PCS; 2024-01-01)
DX: I13.0 Hypertensive heart and chronic kidney disease with heart failure and stage 1 through stage 4 chronic kidney disease, or unspecified chronic kidney disease (principal); I50.21 Acute systolic (congestive) heart failure; G36.0 Neuromyelitis optica [Devic]; N17.9 Acute kidney failure, unspecified; R94.31 Abnormal electrocardiogram [ECG] [EKG]; I42.0 Dilated cardiomyopathy; R91.1 Solitary pulmonary nodule; L40.50 Arthropathic psoriasis, unspecified; I25.10 Atherosclerotic heart disease of native coronary artery without angina pectoris; R09.89 Other specified symptoms and signs involving the circulatory and respiratory systems; N18.31 Chronic kidney disease, stage 3a; N40.0 Benign prostatic hyperplasia without lower urinary tract symptoms; G47.00 Insomnia, unspecified; Z87.891 Personal history of nicotine dependence; Z82.49 Family history of ischemic heart disease and other diseases of the circulatory system
CPT/HCPCS: 36415; 71046; 80053; 80061; 83880; 84484; 85025; 85027; 85610; 85730; 86704; 86803; 87340; 87389; 93005; 93306; 93458; 96374; 97161; 97166; 99285; C1894; Q9967

== ENCOUNTER → 2024-01-14 17:36 | Outpatient (REF) | payer MEDICARE, OTHER, SELFPAY ==
[2024-01-15 10:15] LABS: Hematocrit 46.6 % (39.0-52.0); Mean Corp Hgb Conc. 32.2 g/dL (33.0-37.0); Mean Corpuscular Hgb 28.8 pg (27.0-31.0); Mean Corpuscular Volume 89.6 fL (80.0-94.0); Platelet Count 227 10^3/uL (130-400); Red Blood Cell Count 5.2 10^6/uL (4.70-6.10); Red Cell Dist. Width 13.5 % (11.5-14.5); White Blood Cell Count 8.1 10^3/uL (4.8-10.8)
[2024-01-15 10:16] LABS: % Basophils 1.2 % (0-2); % Eosinophils 2.6 % (0-6); % Immature Granulocytes 0.4 % (0-0.5); % Lymphocytes 26.1 % (20.5-51.1); % Monocytes 5.9 % (1.7-9.3); % Neutrophils 63.8 % (42.2-75.2); Absolute Basophils 0.1 10^3/uL (0-0.2); Absolute Eosinophils 0.2 10^3/uL (0-0.7); Absolute Lymphocytes 2.1 10^3/uL (1.2-3.4); Absolute Monocytes 0.5 10^3/uL (0.1-0.6); Absolute Neutrophils 5.2 10^3/uL (1.4-6.5); Mean Platelet Volume 11.7 fL (7.4-10.4)
[2024-01-15 10:17] LABS: Nucleated Red Blood Cells % 0 % (-)
[2024-01-15 10:41] LABS: Blood Urea Nitrogen 30 mg/dl (9-20); Calcium 10.1 mg/dl (8.4-10.2); Carbon Dioxide 31 mmol/L (22-30); Chloride 99 mmol/L (98-107); Glucose 57 mg/dl (70-99); Potassium 5.3 mmol/L (3.5-5.1); Sodium 138 mmol/L (135-145); eGFR 43.64
== END ==
LOC: OLAB 17:36
PROVIDERS: ATTENDING PHYSICIAN Internal Medicine Geriatric Medicine
DX: I50.40 Unspecified combined systolic (congestive) and diastolic (congestive) heart failure (principal); R79.1 Abnormal coagulation profile
CPT/HCPCS: 80048; 85025

== ENCOUNTER → 2024-01-19 07:18 | Outpatient (REF) | payer MEDICARE, OTHER, SELFPAY ==
[2024-01-19 09:03] LABS: Blood Urea Nitrogen 37 mg/dl (9-20); Calcium 9.5 mg/dl (8.4-10.2); Carbon Dioxide 30 mmol/L (22-30); Chloride 99 mmol/L (98-107); Glucose 121 mg/dl (70-99); Potassium 4.4 mmol/L (3.5-5.1); Sodium 137 mmol/L (135-145); eGFR 35.91
[2024-01-20 23:43] LABS: Insulin, Random 43 uIU/mL
== END ==
LOC: REG 07:18
PROVIDERS: ATTENDING PHYSICIAN Internal Medicine Geriatric Medicine
DX: E87.5 Hyperkalemia (principal); E16.2 Hypoglycemia, unspecified; N18.31 Chronic kidney disease, stage 3a
CPT/HCPCS: 36415; 80048; 83525

== ENCOUNTER → 2024-01-25 07:50 | Outpatient (REF) | payer MEDICARE, OTHER, SELFPAY ==
[2024-01-25 11:46] LABS: Albumin 4.1 g/dl (3.5-5.0); Blood Urea Nitrogen 31 mg/dl (9-20); Calcium 9.9 mg/dl (8.4-10.2); Carbon Dioxide 30 mmol/L (22-30); Chloride 99 mmol/L (98-107); Glucose 84 mg/dl (70-99); Potassium 4.6 mmol/L (3.5-5.1); Sodium 137 mmol/L (135-145); eGFR 46.93
[2024-01-26 17:33] LABS: Insulin, Random 4 uIU/mL
== END ==
LOC: REG 07:50
PROVIDERS: ATTENDING PHYSICIAN Internal Medicine Geriatric Medicine
DX: E87.5 Hyperkalemia (principal); E16.2 Hypoglycemia, unspecified; N18.31 Chronic kidney disease, stage 3a
CPT/HCPCS: 36415; 80069; 83525

== ENCOUNTER 2024-01-25 08:41 | Emergency (ER) | payer MEDICARE, OTHER, SELFPAY ==
[2024-01-25 08:41] VITALS: BMI 22.1
[2024-01-25 08:43] VITALS: BP 144/76
--- NOTE | 2024-01-25 11:01 | ED.GENMED ---
History of Present Illness
<Lashon Marquez MD, Resident - Last Filed: 01/25/24 13:29>
General
Chief Complaint: Musculo-Skeletal Complaint
Time Seen by Provider: 01/25/24 09:18
History of Present Illness
History of Present Illness:
68-year-old male, Mr. Tony Dale with past medical history of congestive heart failure, psoriasis presented to the ER reporting sudden onset of right base of the great toe swelling and pain that he noticed in the morning today after waking
up. Pain is 9/10, continuous aching and the patient reports that he was not able to bear weight on the right foot due to pain. He did not take any pain medications. No recent history of fever/chills, trauma, chest pain, abdominal pain, bladder or
bowel disturbances. Patient reports having joint pains in the bilateral distal upper extremity from psoriatic arthritis. He reports being on Remicade for few years but had to discontinue due to the side effect, cost demyelinating optic nerve on
the right side. Patient was recently started on Lasix, spironolactone, carvedilol, Jardiance, valsartan during his last hospital admission in December,.
Past History
<Lashon Marquez MD, Resident - Last Filed: 01/25/24 13:29>
Past History
ED Past Medical History: Other (Psoriatic arthritis no longer on meds)
ED Past Surgical History: None
Social History
Tobacco: Non-smoker
Alcohol: None
Drug: None
Personal:
Living: with family
Employment: Employed
Phy Exam
<Lashon Marquez MD, Resident - Last Filed: 01/25/24 13:29>
Physical Exam
Physical Exam:
Physical Exam
General: no apparent distress, not acutely ill
Neck: supple. no meningeal signs.
Heart: s1/s2 regular rate and rhythm, no murmur
Lungs: no acute respiratory distress. clear bilaterally
Abdomen: normal bowel sounds. not tender. no CVAT
Neuro: alert and oriented. no focal neurological deficits
Skin: Erythematous rash distal bilateral upper extremities, extensor surfaces of the elbow joints
Musculoskeletal: Swelling, tenderness on the plantar aspect of the base of right great toe. No erythema noticed. Right posterior tibial pulse normal, could not find DP pulse with Doppler.
Course
<Lashon Marquez MD, Resident - Last Filed: 01/25/24 13:29>
Orders/Labs/Results
Orders:
Orders
01/25/24 10:26
CR Foot - Right 2 Views Urgent
Comment:
Reason For Exam: base of great toe pain, swelling
01/25/24 10:45
US Periph Arterial LOWER Ext Urgent
Comment:
Reason For Exam: RIGHT; pain; cannot doppler R DP pulse
Vital Signs
Initial and Last Documented VS:
Initial Vital Signs
Temp Pulse Resp BP Pulse Ox
98.1 F 68 18 144/76 100
01/25/24 08:43 01/25/24 08:43 01/25/24 08:43 01/25/24 08:43 01/25/24 08:43
Last Documented Vital Signs
Temp Pulse Resp BP Pulse Ox
98.1 F 74 18 149/91 99
01/25/24 08:43 01/25/24 12:00 01/25/24 12:00 01/25/24 12:00 01/25/24 12:00
<Thiago Hatfield, DO - Last Filed: 01/25/24 13:36>
Orders/Labs/Results
Orders:
Orders
01/25/24 10:26
CR Foot - Right 2 Views Urgent
Comment:
Reason For Exam: base of great toe pain, swelling
01/25/24 10:45
US Periph Arterial LOWER Ext Urgent
Comment:
Reason For Exam: RIGHT; pain; cannot doppler R DP pulse
Vital Signs
Initial and Last Documented VS:
Initial Vital Signs
Temp Pulse Resp BP Pulse Ox
98.1 F 68 18 144/76 100
01/25/24 08:43 01/25/24 08:43 01/25/24 08:43 01/25/24 08:43 01/25/24 08:43
Last Documented Vital Signs
Temp Pulse Resp BP Pulse Ox
98.1 F 74 18 149/91 99
01/25/24 08:43 01/25/24 12:00 01/25/24 12:00 01/25/24 12:00 01/25/24 12:00
<Lashon Marquez MD, Resident - Last Filed: 01/25/24 13:29>
MDM/Problems Addressed
Differential Diagnosis Includes:
Gouty arthritis, Psoriatic arthritis, osteoarthritis.
MDM/Problems Addressed:
Patient's recent blood work from 01/19/2024 showed elevated renal numbers, BUN at 37, creatinine at 2.0. His blood glucose is elevated at 121.
X-ray foot�No evidence of acute injury. No significant abnormality.
Lower extremity peripheral arterial ultrasound�no evidence of significant stenosis.
Patient is stable to be discharged.
Discharge medications�Percocet and 5-day course of prednisone.
Advised follow-up with his primary care within a week.
Advised diet restriction for red meat, decrease alcohol intake. Adequate hydration.
<Lashon Marquez MD, Resident - Last Filed: 01/25/24 13:29>
*Critical Care Note
Total Time (30-74mins, 75-104mins- exclusive of procedures): Not Applicable
ED Attending Note
<Lashon Marquez MD, Resident - Last Filed: 01/25/24 13:29>
-
Portions of this chart may have been created with voice recognition software.� Occasional wrong word or��sound alike� substitutions may have occurred due to the inherent limitations of voice recognition software.
<Thiago Chenjamarcus, DO - Last Filed: 01/25/24 13:36>
ED Attending Note
Patient seen and examined by attending physician: Yes
I performed the substantive portion of visit, reviewed & personally made and approve the management plan that is documented in note by myself or CHIDI.: Yes
I performed a history and physical exam of patient and discussed management with resident, I reviewed resident's note and agree with documented findings and plan of care.: Yes
ED Attending Note:
I evaluated the patient at bedside. The patient does have a history of psoriasis. He presents with right first toe pain. I did have trouble palpating at right DP pulse and also had trouble tolerating it. I then spoke to Dr. James and we obtained
an arterial ultrasound which shows no evidence for stenosis. Suspect more of a gouty arthritis or psoriatic arthritis. Plain film imaging unremarkable. I reviewed old records, and his last creatinine was elevated�will hold off on NSAIDs. Will
give short course of low-dose steroids. He was recently started on diuretic related to what could have been a viral cardiomyopathy.
Discharge Plan
Departure
Patient Disposition: Home (Routine Discharge)
Date of Disposition: 01/25/24
Time of Disposition: 13:00
Patient with high blood pressure during this ER visit?: Yes
Discharge Problem:
Base of great toe swelling, pain
Prescriptions:
New
oxycodone-acetaminophen [Percocet] 5-325 mg tablet
1 - 2 tab PO Q8H PRN (Reason: pain) Qty: 14 0RF
prednisone 10 mg tablet
10 mg PO DAILY Qty: 5 0RF
No Action
diphenhydramine HCl [Benadryl] 25 mg Capsule
25 mg PO HSPRN PRN (Reason: insomnia)
ydjmiqnnx-UOV-VG-acetaminophen 6.45-23-22-500 mg/15 mL Liquid
5 ml PO HSPRN PRN (Reason: Insomnia)
spironolactone 25 mg Tablet
25 mg PO DAILY Qty: 30 0RF
carvedilol 3.125 mg Tablet
3.125 mg PO BID Qty: 60 0RF
Jardiance 10 mg Tablet
10 mg PO DAILY Qty: 30 0RF
furosemide 40 mg Tablet
40 mg PO DAILY Qty: 30 0RF
valsartan [Diovan] 80 mg tablet
80 mg PO DAILY Qty: 30 0RF
Referrals:
Keaton Hernandez MD [Family Provider] -
Activity Restrictions/Additional Instructions:
Reduce intake of red meat, alcohol.
Rest, ice application at the site of swelling.
Adequate hydration.
Follow-up with primary care within a week.
Interventions
Interventions:
*Risk Screen - Suicide Last Done: 01/25/24 08:43
*General Assessment Last Done: 01/25/24 08:43
*Neglect/Abuse Screening Last Done: 01/25/24 08:43
ED- Fall Risk Assessment Last Done: 01/25/24 09:30
*ED COVID-19 Vaccine History Last Done: 01/25/24 08:43
*Nursing Disposition Last Done: 01/25/24 13:33
ED-Musculoskeletal Assessment Last Done: 01/25/24 09:00
Discharge Date and Time
Discharge Date/Time: 01/25/24 13:34
Print Language: [place]GL[place]ES[place]
[2024-01-25 12:00] VITALS: BP 149/91
== END 2024-01-25 13:34 | disposition home or self-care (01) ==
LOC: EMR 08:41
PROVIDERS: EMERGENCY PHYSICIAN Emergency Medicine; FAMILY PHYSICIAN Internal Medicine Geriatric Medicine
DX: M79.89 Other specified soft tissue disorders (principal); M79.674 Pain in right toe(s); R26.2 Difficulty in walking, not elsewhere classified; R03.0 Elevated blood-pressure reading, without diagnosis of hypertension; R73.9 Hyperglycemia, unspecified; I50.9 Heart failure, unspecified; L40.50 Arthropathic psoriasis, unspecified; Z88.8 Allergy status to other drugs, medicaments and biological substances
CPT/HCPCS: 99284; 73620; 93925

== ENCOUNTER → 2024-01-29 17:03 | Outpatient (REF) | payer MEDICARE, OTHER, SELFPAY ==
[2024-01-29 17:52] LABS: % Basophils 0.6 % (0-2); % Eosinophils 0.2 % (0-6); % Immature Granulocytes 0.4 % (0-0.5); % Monocytes 2.8 % (1.7-9.3); Absolute Basophils 0.1 10^3/uL (0-0.2); Absolute Lymphocytes 1.5 10^3/uL (1.2-3.4); Absolute Monocytes 0.2 10^3/uL (0.1-0.6); Absolute Neutrophils 6.3 10^3/uL (1.4-6.5); Hematocrit 43.6 % (39.0-52.0); Hemoglobin 14.3 g/dL (13.0-18.0); Mean Corp Hgb Conc. 32.8 g/dL (33.0-37.0); Mean Corpuscular Hgb 28.9 pg (27.0-31.0); Mean Corpuscular Volume 88.3 fL (80.0-94.0); Mean Platelet Volume 10.8 fL (7.4-10.4); Nucleated Red Blood Cells % 0 % (-); Platelet Count 239 10^3/uL (130-400); Red Blood Cell Count 4.94 10^6/uL (4.70-6.10); Red Cell Dist. Width 13.5 % (11.5-14.5); White Blood Cell Count 8.1 10^3/uL (4.8-10.8)
[2024-01-29 18:08] LABS: ALT (SGPT) 15 U/L (0-50); AST (SGOT) 22 U/L (17-59); Albumin 4.7 g/dl (3.5-5.0); Alkaline Phosphatase 108 U/L (38-126); Blood Urea Nitrogen 31 mg/dl (9-20); Calcium 10.3 mg/dl (8.4-10.2); Carbon Dioxide 29 mmol/L (22-30); Chloride 100 mmol/L (98-107); Glucose 108 mg/dl (70-99); Sodium 138 mmol/L (135-145); Total Bilirubin 0.6 mg/dl (0.2-1.3); Total Protein 7.7 g/dl (6.3-8.2); eGFR 46.93
[2024-01-29 18:09] LABS: Uric Acid 9.5 mg/dl (3.5-8.5)
[2024-01-29 18:12] LABS: NT-proBNP 2250 pg/ml
== END ==
LOC: REG 17:03
PROVIDERS: ATTENDING PHYSICIAN Internal Medicine Geriatric Medicine
DX: Z00.00 Encounter for general adult medical examination without abnormal findings (principal); E78.2 Mixed hyperlipidemia; I10 Essential (primary) hypertension; M06.9 Rheumatoid arthritis, unspecified; N18.31 Chronic kidney disease, stage 3a; N40.0 Benign prostatic hyperplasia without lower urinary tract symptoms; R06.02 Shortness of breath; R91.1 Solitary pulmonary nodule; E55.9 Vitamin D deficiency, unspecified; I50.21 Acute systolic (congestive) heart failure; Z13.31 Encounter for screening for depression
CPT/HCPCS: 36415; 80053; 83735; 83880; 84550; 85025

== ENCOUNTER → 2024-02-16 07:45 | Outpatient (REF) | payer MEDICARE, OTHER, SELFPAY ==
[2024-02-16 08:56] LABS: % Basophils 0.9 % (0-2); % Immature Granulocytes 0.4 % (0-0.5); % Lymphocytes 26.2 % (20.5-51.1); % Monocytes 7.4 % (1.7-9.3); % Neutrophils 63.1 % (42.2-75.2); Absolute Basophils 0.1 10^3/uL (0-0.2); Absolute Eosinophils 0.2 10^3/uL (0-0.7); Absolute Lymphocytes 2.2 10^3/uL (1.2-3.4); Absolute Monocytes 0.6 10^3/uL (0.1-0.6); Absolute Neutrophils 5.4 10^3/uL (1.4-6.5); Hematocrit 42.8 % (39.0-52.0); Mean Corp Hgb Conc. 32.7 g/dL (33.0-37.0); Mean Corpuscular Hgb 29.4 pg (27.0-31.0); Mean Corpuscular Volume 89.7 fL (80.0-94.0); Mean Platelet Volume 10.2 fL (7.4-10.4); Nucleated Red Blood Cells % 0 % (-); Platelet Count 244 10^3/uL (130-400); Red Blood Cell Count 4.77 10^6/uL (4.70-6.10); Red Cell Dist. Width 13.6 % (11.5-14.5); White Blood Cell Count 8.5 10^3/uL (4.8-10.8)
[2024-02-16 09:45] LABS: NT-proBNP 2220 pg/ml
[2024-02-16 10:09] LABS: ALT (SGPT) 14 U/L (0-50); AST (SGOT) 19 U/L (17-59); Albumin 4.1 g/dl (3.5-5.0); Alkaline Phosphatase 91 U/L (38-126); Blood Urea Nitrogen 38 mg/dl (9-20); Calcium 9.8 mg/dl (8.4-10.2); Carbon Dioxide 32 mmol/L (22-30); Chloride 99 mmol/L (98-107); Direct Bilirubin 0.2 mg/dl (0.0-0.4); Glucose 86 mg/dl (70-99); Magnesium 2.2 mg/dl (1.6-2.3); Phosphorus 4.3 mg/dl (2.5-4.5); Potassium 4.7 mmol/L (3.5-5.1); Sodium 140 mmol/L (135-145); Total Bilirubin 0.5 mg/dl (0.2-1.3); Total Protein 6.8 g/dl (6.3-8.2); Uric Acid 6.3 mg/dl (3.5-8.5); eGFR 46.93
[2024-02-16 10:54] LABS: Cortisol, Random 3.9 ug/dl
[2024-02-17 15:02] LABS: Insulin, Random 8 uIU/mL
[2024-02-18 05:12] LABS: IGF-1 Z Score Calculation 1.8; Insulin-like Growth Factor I 224 ng/mL (34-240)
== END ==
LOC: REG 07:45
PROVIDERS: ATTENDING PHYSICIAN Internal Medicine Geriatric Medicine; FAMILY PHYSICIAN Internal Medicine Cardiovascular Disease
DX: Z00.00 Encounter for general adult medical examination without abnormal findings (principal); E78.2 Mixed hyperlipidemia; I10 Essential (primary) hypertension; M06.9 Rheumatoid arthritis, unspecified; N18.31 Chronic kidney disease, stage 3a; N40.0 Benign prostatic hyperplasia without lower urinary tract symptoms; R06.02 Shortness of breath; R91.1 Solitary pulmonary nodule; E55.9 Vitamin D deficiency, unspecified; I50.21 Acute systolic (congestive) heart failure; Z13.31 Encounter for screening for depression; E87.5 Hyperkalemia; E16.2 Hypoglycemia, unspecified
CPT/HCPCS: 36415; 80053; 82248; 82533; 83525; 83735; 83880; 84100; 84305; 84550; 85025

== ENCOUNTER 2024-02-18 12:29 | Outpatient (RCR) | payer MEDICARE, OTHER, SELFPAY | END 2024-02-18 23:59 | disposition home or self-care (01) | LOC: CRHB 12:29 | PROVIDERS: ATTENDING PHYSICIAN Internal Medicine Cardiovascular Disease | DX: I50.22 Chronic systolic (congestive) heart failure (principal) | CPT/HCPCS: G0422 ==

== ENCOUNTER → 2024-02-19 12:00 | Outpatient (REF) | payer MEDICARE, OTHER, SELFPAY | LOC: DHSLP 12:00 | PROVIDERS: ATTENDING PHYSICIAN Internal Medicine Critical Care Medicine; FAMILY PHYSICIAN Internal Medicine Geriatric Medicine | DX: G47.30 Sleep apnea, unspecified (principal); R06.83 Snoring | CPT/HCPCS: 95800 ==

== ENCOUNTER 2024-02-25 07:38 | Outpatient (RCR) | payer MEDICARE, OTHER, SELFPAY ==
[2024-02-25 08:04] VITALS: BP 125/73
[2024-02-25] MEDS: CORTROSYN 1 MG IV (09:05)
[2024-02-25 12:00] LABS: ACTH Stim Cortisol 60 Min 21.5 ug/dl
[2024-02-25 12:01] LABS: ACTH Stim Cortisol 0 Min 9.6 ug/dl
== END 2024-02-26 09:11 | disposition home or self-care (01) ==
LOC: OID 07:38
PROVIDERS: ATTENDING PHYSICIAN Internal Medicine Geriatric Medicine
DX: I50.21 Acute systolic (congestive) heart failure (principal); M06.9 Rheumatoid arthritis, unspecified
CPT/HCPCS: 36415; 82533; 96374

== ENCOUNTER 2024-03-02 08:19 | Outpatient (RCR) | payer MEDICARE, OTHER, SELFPAY | END 2024-03-02 23:59 | disposition home or self-care (01) | LOC: CRHB 08:19 | PROVIDERS: ATTENDING PHYSICIAN Internal Medicine Cardiovascular Disease | DX: I50.22 Chronic systolic (congestive) heart failure (principal); I42.8 Other cardiomyopathies | CPT/HCPCS: G0422; G0423 ==

== ENCOUNTER → 2024-03-02 09:22 | Outpatient (REF) | payer MEDICARE, OTHER, SELFPAY ==
[2024-03-02 10:52] LABS: % Basophils 1.3 % (0-2); % Eosinophils 1.8 % (0-6); % Immature Granulocytes 0.1 % (0-0.5); % Lymphocytes 24.3 % (20.5-51.1); % Monocytes 7.4 % (1.7-9.3); % Neutrophils 65.1 % (42.2-75.2); Absolute Basophils 0.1 10^3/uL (0-0.2); Absolute Eosinophils 0.1 10^3/uL (0-0.7); Absolute Lymphocytes 1.9 10^3/uL (1.2-3.4); Absolute Monocytes 0.6 10^3/uL (0.1-0.6); Hematocrit 42.9 % (39.0-52.0); Hemoglobin 14.2 g/dL (13.0-18.0); Mean Corp Hgb Conc. 33.1 g/dL (33.0-37.0); Mean Corpuscular Hgb 29.6 pg (27.0-31.0); Mean Corpuscular Volume 89.6 fL (80.0-94.0); Mean Platelet Volume 10.3 fL (7.4-10.4); Nucleated Red Blood Cells % 0 % (-); Platelet Count 248 10^3/uL (130-400); Red Blood Cell Count 4.79 10^6/uL (4.70-6.10); Red Cell Dist. Width 13.8 % (11.5-14.5); White Blood Cell Count 7.7 10^3/uL (4.8-10.8)
[2024-03-02 11:17] LABS: ALT (SGPT) 18 U/L (0-50); AST (SGOT) 25 U/L (17-59); Albumin 4.3 g/dl (3.5-5.0); Alkaline Phosphatase 133 U/L (38-126); Blood Urea Nitrogen 20 mg/dl (9-20); Calcium 9.9 mg/dl (8.4-10.2); Carbon Dioxide 29 mmol/L (22-30); Chloride 99 mmol/L (98-107); Glucose 89 mg/dl (70-99); Phosphorus 4.2 mg/dl (2.5-4.5); Potassium 4.5 mmol/L (3.5-5.1); Sodium 141 mmol/L (135-145); Total Protein 7.1 g/dl (6.3-8.2); Uric Acid 6.6 mg/dl (3.5-8.5); eGFR 43.64
[2024-03-02 11:25] LABS: NT-proBNP 1640 pg/ml
[2024-03-04 03:40] LABS: IGF-1 Z Score Calculation 1.1; Insulin-like Growth Factor I 170 ng/mL (34-240)
== END ==
LOC: REG 09:22
PROVIDERS: ATTENDING PHYSICIAN Internal Medicine Geriatric Medicine
DX: E78.2 Mixed hyperlipidemia (principal); I10 Essential (primary) hypertension; M06.9 Rheumatoid arthritis, unspecified; N18.31 Chronic kidney disease, stage 3a; N40.0 Benign prostatic hyperplasia without lower urinary tract symptoms; R06.02 Shortness of breath; R91.1 Solitary pulmonary nodule; E55.9 Vitamin D deficiency, unspecified; I50.21 Acute systolic (congestive) heart failure; Z13.31 Encounter for screening for depression
CPT/HCPCS: 36415; 80053; 80069; 83880; 84305; 84550; 85025

== ENCOUNTER → 2024-03-18 16:22 | Outpatient (REF) | payer MEDICARE, OTHER, SELFPAY ==
[2024-03-18 18:06] LABS: ALT (SGPT) 18 U/L (0-50); AST (SGOT) 25 U/L (17-59); Albumin 4.3 g/dl (3.5-5.0); Alkaline Phosphatase 140 U/L (38-126); Blood Urea Nitrogen 26 mg/dl (9-20); Calcium 9.9 mg/dl (8.4-10.2); Carbon Dioxide 33 mmol/L (22-30); Chloride 95 mmol/L (98-107); Glucose 95 mg/dl (70-99); Iron 55 ug/dl (49-181); Potassium 4.8 mmol/L (3.5-5.1); Sodium 139 mmol/L (135-145); Total Bilirubin 0.6 mg/dl (0.2-1.3); Total Protein 7.3 g/dl (6.3-8.2); Uric Acid 5.5 mg/dl (3.5-8.5); eGFR 40.75
[2024-03-18 18:12] LABS: NT-proBNP 1660 pg/ml
[2024-03-18 18:30] LABS: % Basophils 1.3 % (0-2); % Eosinophils 1.3 % (0-6); % Lymphocytes 33.7 % (20.5-51.1); % Monocytes 10.2 % (1.7-9.3); % Neutrophils 52.5 % (42.2-75.2); Absolute Basophils 0.1 10^3/uL (0-0.2); Absolute Eosinophils 0.1 10^3/uL (0-0.7); Absolute Immature Granulocytes 0.1 10^3/uL (0-0.05); Absolute Monocytes 0.6 10^3/uL (0.1-0.6); Absolute Neutrophils 3.2 10^3/uL (1.4-6.5); Hematocrit 40.9 % (39.0-52.0); Hemoglobin 13.5 g/dL (13.0-18.0); Mean Corpuscular Hgb 29.8 pg (27.0-31.0); Mean Corpuscular Volume 90.3 fL (80.0-94.0); Mean Platelet Volume 10.4 fL (7.4-10.4); Nucleated Red Blood Cells % 0 % (-); Platelet Count 317 10^3/uL (130-400); Red Blood Cell Count 4.53 10^6/uL (4.70-6.10); Red Cell Dist. Width 13.5 % (11.5-14.5); White Blood Cell Count 6.1 10^3/uL (4.8-10.8)
[2024-03-18 19:15] LABS: Erythrocyte Sed Rate 27 mm/hour (0-20)
[2024-03-20 21:25] LABS: Transferrin 259 mg/dL (200-360)
[2024-03-21 09:08] LABS: CCP Antibody IgG/IgA 6 Units (0-19)
== END ==
LOC: REG 16:22
PROVIDERS: ATTENDING PHYSICIAN Dermatology; FAMILY PHYSICIAN Internal Medicine Geriatric Medicine
DX: I10 Essential (primary) hypertension (principal); E78.2 Mixed hyperlipidemia; N18.31 Chronic kidney disease, stage 3a; N40.0 Benign prostatic hyperplasia without lower urinary tract symptoms; R06.02 Shortness of breath; R91.1 Solitary pulmonary nodule; E55.9 Vitamin D deficiency, unspecified; I50.21 Acute systolic (congestive) heart failure; Z13.31 Encounter for screening for depression; L40.9 Psoriasis, unspecified; M19.90 Unspecified osteoarthritis, unspecified site; Z79.899 Other long term (current) drug therapy; L60.3 Nail dystrophy
CPT/HCPCS: 36415; 80053; 83540; 83880; 84466; 84550; 85025; 85652; 86140; 86200; 86430

== ENCOUNTER → 2024-03-19 08:01 | Outpatient (REF) | payer MEDICARE, OTHER, SELFPAY ==
[2024-03-21 05:18] LABS: Quantiferon Mitogen minus NIL 7.09 IU/mL; Quantiferon NIL 0.05 IU/mL; Quantiferon Plus TB1 minus NIL 0.02 IU/mL (<=0.34); Quantiferon Plus TB2 minus NIL 0.01 IU/mL (<=0.34); Quantiferon TB Gold Plus Negative (Negative)
== END ==
LOC: REG 08:01
PROVIDERS: ATTENDING PHYSICIAN Dermatology; FAMILY PHYSICIAN Internal Medicine Geriatric Medicine
DX: L40.9 Psoriasis, unspecified (principal); M19.90 Unspecified osteoarthritis, unspecified site; Z79.899 Other long term (current) drug therapy
CPT/HCPCS: 36415; 86480

== ENCOUNTER → 2024-03-29 14:05 | Outpatient (REF) | payer MEDICARE, OTHER, SELFPAY | LOC: HWRAD 14:05 | PROVIDERS: ATTENDING PHYSICIAN Internal Medicine Critical Care Medicine; FAMILY PHYSICIAN Internal Medicine Geriatric Medicine | DX: R91.1 Solitary pulmonary nodule (principal) | CPT/HCPCS: 71250 ==

== ENCOUNTER → 2024-04-02 10:58 | Outpatient (REF) | payer MEDICARE, OTHER, SELFPAY ==
[2024-04-02 11:56] LABS: NT-proBNP 765 pg/ml
[2024-04-02 12:12] LABS: Albumin 4.1 g/dl (3.5-5.0); Blood Urea Nitrogen 27 mg/dl (9-20); Calcium 10.1 mg/dl (8.4-10.2); Carbon Dioxide 34 mmol/L (22-30); Chloride 95 mmol/L (98-107); Glucose 90 mg/dl (70-99); Phosphorus 4.3 mg/dl (2.5-4.5); Sodium 139 mmol/L (135-145); Uric Acid 5.1 mg/dl (3.5-8.5); eGFR 43.64
== END ==
LOC: REG 10:58
PROVIDERS: ATTENDING PHYSICIAN Internal Medicine Geriatric Medicine
DX: I10 Essential (primary) hypertension (principal); E78.2 Mixed hyperlipidemia; M06.9 Rheumatoid arthritis, unspecified; N18.31 Chronic kidney disease, stage 3a; N40.0 Benign prostatic hyperplasia without lower urinary tract symptoms; R06.02 Shortness of breath; R91.1 Solitary pulmonary nodule
CPT/HCPCS: 36415; 80069; 83880; 84550

== ENCOUNTER → 2024-04-13 07:59 | Outpatient (REF) | payer MEDICARE, OTHER, SELFPAY | LOC: RCS 07:59 | PROVIDERS: ATTENDING PHYSICIAN Internal Medicine Cardiovascular Disease; FAMILY PHYSICIAN Internal Medicine Geriatric Medicine | DX: I50.21 Acute systolic (congestive) heart failure (principal); I10 Essential (primary) hypertension | CPT/HCPCS: 93306 ==

== ENCOUNTER 2024-04-20 08:51 | Outpatient (RCR) | payer MEDICARE, OTHER, SELFPAY | END 2024-04-20 23:59 | disposition home or self-care (01) | LOC: CRHB 08:51 | PROVIDERS: ATTENDING PHYSICIAN Internal Medicine Cardiovascular Disease | DX: I50.22 Chronic systolic (congestive) heart failure (principal); I42.8 Other cardiomyopathies | CPT/HCPCS: G0422; G0423 ==

== ENCOUNTER → 2024-04-27 09:24 | Outpatient (REF) | payer MEDICARE, OTHER, SELFPAY ==
[2024-04-27 12:10] LABS: Blood Urea Nitrogen 33 mg/dl (9-20); Calcium 10.2 mg/dl (8.4-10.2); Carbon Dioxide 28 mmol/L (22-30); Chloride 99 mmol/L (98-107); Glucose 93 mg/dl (70-99); Magnesium 2.3 mg/dl (1.6-2.3); Potassium 4.7 mmol/L (3.5-5.1); Sodium 140 mmol/L (135-145); eGFR 40.75
== END ==
LOC: REG 09:24
PROVIDERS: ATTENDING PHYSICIAN Nurse Practitioner Acute Care; FAMILY PHYSICIAN Internal Medicine Geriatric Medicine
DX: I42.8 Other cardiomyopathies (principal); I50.21 Acute systolic (congestive) heart failure
CPT/HCPCS: 36415; 80048; 83735; 84443

== ENCOUNTER → 2024-05-17 07:41 | Outpatient (REF) | payer MEDICARE, OTHER, SELFPAY ==
[2024-05-17 08:33] LABS: NT-proBNP 428 pg/ml
[2024-05-17 08:45] LABS: Blood Urea Nitrogen 28 mg/dl (9-20); Calcium 9.7 mg/dl (8.4-10.2); Carbon Dioxide 31 mmol/L (22-30); Chloride 99 mmol/L (98-107); Glucose 99 mg/dl (70-99); Potassium 4.6 mmol/L (3.5-5.1); Sodium 141 mmol/L (135-145); Uric Acid 4.8 mg/dl (3.5-8.5); eGFR 40.75
== END ==
LOC: REG 07:41
PROVIDERS: ATTENDING PHYSICIAN Internal Medicine Cardiovascular Disease; FAMILY PHYSICIAN Internal Medicine Geriatric Medicine
DX: R06.02 Shortness of breath (principal); I10 Essential (primary) hypertension; I42.8 Other cardiomyopathies
CPT/HCPCS: 36415; 80048; 83880; 84550

== ENCOUNTER 2024-05-18 08:42 | Outpatient (RCR) | payer MEDICARE, OTHER, SELFPAY | END 2024-05-18 23:59 | disposition home or self-care (01) | LOC: CRHB 08:42 | PROVIDERS: ATTENDING PHYSICIAN Internal Medicine Cardiovascular Disease | DX: I50.22 Chronic systolic (congestive) heart failure (principal) | CPT/HCPCS: G0422; G0423 ==

== ENCOUNTER 2024-06-06 08:45 | Outpatient (RCR) | payer MEDICARE, OTHER, SELFPAY | END 2024-06-06 23:59 | disposition home or self-care (01) | LOC: CRHB 08:45 | PROVIDERS: ATTENDING PHYSICIAN Internal Medicine Cardiovascular Disease | DX: I50.22 Chronic systolic (congestive) heart failure (principal) | CPT/HCPCS: G0422; G0423 ==

== ENCOUNTER 2024-06-23 08:40 | Outpatient (RCR) | payer MEDICARE, OTHER, SELFPAY | END 2024-06-23 23:59 | disposition home or self-care (01) | LOC: CRHB 08:40 | PROVIDERS: ATTENDING PHYSICIAN Internal Medicine Cardiovascular Disease | DX: I50.22 Chronic systolic (congestive) heart failure (principal) | CPT/HCPCS: G0422 ==

== ENCOUNTER → 2024-08-04 17:05 | Outpatient (REF) | payer MEDICARE, OTHER, SELFPAY ==
[2024-08-04 17:53] LABS: % Basophils 1.1 % (0-2); % Eosinophils 3.1 % (0-6); % Immature Granulocytes 0.1 % (0-0.5); % Lymphocytes 32.5 % (20.5-51.1); % Monocytes 7.8 % (1.7-9.3); % Neutrophils 55.4 % (42.2-75.2); Absolute Basophils 0.1 10^3/uL (0-0.2); Absolute Eosinophils 0.2 10^3/uL (0-0.7); Absolute Lymphocytes 2.3 10^3/uL (1.2-3.4); Absolute Monocytes 0.6 10^3/uL (0.1-0.6); Absolute Neutrophils 3.9 10^3/uL (1.4-6.5); Hematocrit 44.7 % (39.0-52.0); Hemoglobin 14.7 g/dL (13.0-18.0); Mean Corp Hgb Conc. 32.9 g/dL (33.0-37.0); Mean Corpuscular Hgb 30.5 pg (27.0-31.0); Mean Corpuscular Volume 92.7 fL (80.0-94.0); Mean Platelet Volume 10.3 fL (7.4-10.4); Nucleated Red Blood Cells % 0 % (-); Platelet Count 188 10^3/uL (130-400); Red Blood Cell Count 4.82 10^6/uL (4.70-6.10); Red Cell Dist. Width 13.4 % (11.5-14.5); White Blood Cell Count 7.1 10^3/uL (4.8-10.8)
[2024-08-04 18:03] LABS: Urine Albumin Negative (Neg - Trace); Urine Bilirubin Negative (Negative); Urine Character Clear (Clear); Urine Color Yellow; Urine Glucose 4+ (Negative); Urine Ketone Negative (Negative); Urine Leukocyte Negative (Negative); Urine Nitrite Negative (Negative); Urine Occult Blood Negative (Negative); Urine Urobilinogen Negative (Neg - 1+)
[2024-08-04 18:06] LABS: ALT (SGPT) 20 U/L (0-50); AST (SGOT) 28 U/L (17-59); Albumin 4.5 g/dl (3.5-5.0); Alkaline Phosphatase 102 U/L (38-126); Blood Urea Nitrogen 27 mg/dl (9-20); Calcium 9.7 mg/dl (8.4-10.2); Carbon Dioxide 35 mmol/L (22-30); Chloride 96 mmol/L (98-107); Glucose 98 mg/dl (70-99); Magnesium 2.4 mg/dl (1.6-2.3); Potassium 4.2 mmol/L (3.5-5.1); Sodium 137 mmol/L (135-145); Total Bilirubin 0.9 mg/dl (0.2-1.3); Total Protein 7.4 g/dl (6.3-8.2); eGFR 35.91
[2024-08-04 18:13] LABS: NT-proBNP 269 pg/ml
[2024-08-04 18:24] LABS: Vitamin D, 25-OH*** 46.5 ng/mL (30-80)
[2024-08-04 18:37] LABS: TSH 1.91 uIU/ml (0.47-4.68)
== END ==
LOC: REG 17:05
PROVIDERS: ATTENDING PHYSICIAN Nurse Practitioner Acute Care; FAMILY PHYSICIAN Internal Medicine Geriatric Medicine; OTHER PHYSICIAN Internal Medicine Cardiovascular Disease
DX: I10 Essential (primary) hypertension (principal); E78.2 Mixed hyperlipidemia; N18.31 Chronic kidney disease, stage 3a; N40.0 Benign prostatic hyperplasia without lower urinary tract symptoms; R06.02 Shortness of breath; R91.1 Solitary pulmonary nodule; E55.9 Vitamin D deficiency, unspecified; I50.21 Acute systolic (congestive) heart failure; Z13.89 Encounter for screening for other disorder; I42.8 Other cardiomyopathies
CPT/HCPCS: 36415; 80053; 81003; 82306; 83735; 83880; 84443; 84550; 85025

== ENCOUNTER → 2024-08-22 09:22 | Outpatient (REF) | payer MEDICARE, OTHER, SELFPAY ==
[2024-08-22 10:23] LABS: Erythrocyte Sed Rate 6 mm/hour (0-20)
[2024-08-22 10:54] LABS: Microalbumin, Random Urine < 0.6 mg/dl (0.6-1.7)
[2024-08-22 11:08] LABS: HDL Cholesterol 56 mg/dl; LDL Cholesterol, Calculated 185 mg/dl; Total Cholesterol 303 mg/dl (50-199); Triglyceride 314 mg/dl (10-149); Very Low Density Lipoprotein 62 mg/dl (0-30)
[2024-08-22 11:10] LABS: C-Reactive Protein < 5.00 mg/L (0.0-10.00)
[2024-08-22 13:24] LABS: Rubeola (Measles) IgG Positive
== END ==
LOC: REG 09:22
PROVIDERS: ATTENDING PHYSICIAN Internal Medicine Geriatric Medicine
DX: I10 Essential (primary) hypertension (principal); E78.2 Mixed hyperlipidemia; N18.31 Chronic kidney disease, stage 3a; N40.0 Benign prostatic hyperplasia without lower urinary tract symptoms; R06.02 Shortness of breath; R91.1 Solitary pulmonary nodule; E55.9 Vitamin D deficiency, unspecified; I50.21 Acute systolic (congestive) heart failure; Z13.89 Encounter for screening for other disorder; Z01.84 Encounter for antibody response examination
CPT/HCPCS: 36415; 80061; 82043; 85652; 86140; 86765

== ENCOUNTER → 2024-10-13 10:03 | Outpatient (REF) | payer MEDICARE, OTHER, SELFPAY ==
[2024-10-13 11:35] LABS: % Basophils 1.1 % (0-2); % Eosinophils 2.6 % (0-6); % Immature Granulocytes 0.2 % (0-0.5); % Lymphocytes 35.7 % (20.5-51.1); % Monocytes 6.5 % (1.7-9.3); % Neutrophils 53.9 % (42.2-75.2); Absolute Basophils 0.1 10^3/uL (0-0.2); Absolute Eosinophils 0.2 10^3/uL (0-0.7); Absolute Lymphocytes 2.2 10^3/uL (1.2-3.4); Absolute Monocytes 0.4 10^3/uL (0.1-0.6); Absolute Neutrophils 3.3 10^3/uL (1.4-6.5); Hematocrit 46.1 % (39.0-52.0); Hemoglobin 15.2 g/dL (13.0-18.0); Mean Corpuscular Volume 94.1 fL (80.0-94.0); Mean Platelet Volume 10.9 fL (7.4-10.4); Nucleated Red Blood Cells % 0 % (-); Platelet Count 212 10^3/uL (130-400); Red Cell Dist. Width 12.9 % (11.5-14.5); White Blood Cell Count 6.1 10^3/uL (4.8-10.8)
[2024-10-13 12:25] LABS: Albumin 4.4 g/dl (3.5-5.0); Blood Urea Nitrogen 25 mg/dl (9-20); Calcium 10.3 mg/dl (8.4-10.2); Carbon Dioxide 31 mmol/L (22-30); Chloride 101 mmol/L (98-107); Glucose 88 mg/dl (70-99); Phosphorus 3.9 mg/dl (2.5-4.5); Potassium 4.2 mmol/L (3.5-5.1); Sodium 143 mmol/L (135-145); eGFR 40.49
[2024-10-13 12:32] LABS: NT-proBNP 465 pg/ml
[2024-10-13 12:56] LABS: PSA, Total - Screen 1.87 ng/ml (0.0-4.0)
== END ==
LOC: RAD 10:03
PROVIDERS: ATTENDING PHYSICIAN Nurse Practitioner Family; FAMILY PHYSICIAN Internal Medicine Geriatric Medicine; REFERRING PHYSICIAN Internal Medicine Cardiovascular Disease
DX: I50.21 Acute systolic (congestive) heart failure (principal); M06.9 Rheumatoid arthritis, unspecified; E78.2 Mixed hyperlipidemia; N18.31 Chronic kidney disease, stage 3a; I10 Essential (primary) hypertension; N40.0 Benign prostatic hyperplasia without lower urinary tract symptoms; R06.02 Shortness of breath; R91.1 Solitary pulmonary nodule; E55.9 Vitamin D deficiency, unspecified; Z13.89 Encounter for screening for other disorder; M79.672 Pain in left foot; Z12.5 Encounter for screening for malignant neoplasm of prostate
CPT/HCPCS: 36415; 73630; 80069; 83880; 85025; G0103

== ENCOUNTER → 2024-12-06 08:15 | Outpatient (REF) | payer MEDICARE, OTHER, SELFPAY | LOC: HWRCS 08:15 | PROVIDERS: ATTENDING PHYSICIAN Internal Medicine Geriatric Medicine | DX: I50.21 Acute systolic (congestive) heart failure (principal); I36.1 Nonrheumatic tricuspid (valve) insufficiency; I10 Essential (primary) hypertension | CPT/HCPCS: 93306 ==

== ENCOUNTER → 2024-12-15 07:27 | Outpatient (REF) | payer MEDICARE, OTHER, SELFPAY ==
[2024-12-15 09:00] LABS: % Basophils 1.4 % (0-2); % Immature Granulocytes 0.2 % (0-0.5); % Monocytes 7.7 % (1.7-9.3); % Neutrophils 51.7 % (42.2-75.2); Absolute Basophils 0.1 10^3/uL (0-0.2); Absolute Eosinophils 0.2 10^3/uL (0-0.7); Absolute Lymphocytes 2.4 10^3/uL (1.2-3.4); Absolute Monocytes 0.5 10^3/uL (0.1-0.6); Absolute Neutrophils 3.4 10^3/uL (1.4-6.5); Hematocrit 45.6 % (39.0-52.0); Hemoglobin 15.1 g/dL (13.0-18.0); Mean Corp Hgb Conc. 33.1 g/dL (33.0-37.0); Mean Corpuscular Hgb 30.9 pg (27.0-31.0); Mean Corpuscular Volume 93.3 fL (80.0-94.0); Mean Platelet Volume 11.2 fL (7.4-10.4); Nucleated Red Blood Cells % 0 % (-); Platelet Count 190 10^3/uL (130-400); Red Blood Cell Count 4.89 10^6/uL (4.70-6.10); Red Cell Dist. Width 12.7 % (11.5-14.5); White Blood Cell Count 6.6 10^3/uL (4.8-10.8)
[2024-12-15 09:09] LABS: Urine Albumin Negative (Neg - Trace); Urine Bilirubin Negative (Negative); Urine Character Clear (Clear); Urine Color Yellow; Urine Glucose 4+ (Negative); Urine Ketone Negative (Negative); Urine Leukocyte Negative (Negative); Urine Nitrite Negative (Negative); Urine Occult Blood Negative (Negative); Urine Urobilinogen Negative (Neg - 1+); Urine pH 6.5 (5.0-9.0)
[2024-12-15 10:04] LABS: NT-proBNP 404 pg/ml
[2024-12-15 10:37] LABS: Erythrocyte Sed Rate 8 mm/hour (0-20)
[2024-12-15 12:31] LABS: ALT (SGPT) 15 U/L (0-50); AST (SGOT) 22 U/L (17-59); Albumin 4.3 g/dl (3.5-5.0); Alkaline Phosphatase 92 U/L (38-126); Blood Urea Nitrogen 26 mg/dl (9-20); Carbon Dioxide 31 mmol/L (22-30); Chloride 105 mmol/L (98-107); Glucose 97 mg/dl (70-99); HDL Cholesterol 47 mg/dl; LDL Cholesterol, Calculated 137 mg/dl; Potassium 4.3 mmol/L (3.5-5.1); Sodium 142 mmol/L (135-145); Total Bilirubin 0.7 mg/dl (0.2-1.3); Total Cholesterol 260 mg/dl (50-199); Total Protein 7.1 g/dl (6.3-8.2); Triglyceride 382 mg/dl (10-149); Very Low Density Lipoprotein 76 mg/dl (0-30); eGFR 43.37
[2024-12-15 13:57] LABS: C-Reactive Protein < 5.00 mg/L (0.0-10.00)
[2024-12-15 14:17] LABS: Vitamin D, 25-OH*** 52.1 ng/mL (30-80)
== END ==
LOC: REG 07:27
PROVIDERS: ATTENDING PHYSICIAN Dermatology; FAMILY PHYSICIAN Internal Medicine Geriatric Medicine
DX: I50.20 Unspecified systolic (congestive) heart failure (principal); I50.21 Acute systolic (congestive) heart failure; M06.9 Rheumatoid arthritis, unspecified; E78.2 Mixed hyperlipidemia; N18.31 Chronic kidney disease, stage 3a; I10 Essential (primary) hypertension; N40.0 Benign prostatic hyperplasia without lower urinary tract symptoms; R06.02 Shortness of breath; R91.1 Solitary pulmonary nodule; E55.9 Vitamin D deficiency, unspecified; Z13.89 Encounter for screening for other disorder
CPT/HCPCS: 36415; 80053; 80061; 81003; 82306; 83880; 85025; 85652; 86140

== ENCOUNTER → 2025-04-20 08:56 | Outpatient (REF) | payer MEDICARE, OTHER, SELFPAY ==
[2025-04-20 10:05] LABS: Hematocrit 47.4 % (39.0-52.0); Hemoglobin 14.9 g/dL (13.0-18.0); Mean Corp Hgb Conc. 31.4 g/dL (33.0-37.0); Mean Corpuscular Volume 97.3 fL (80.0-94.0); Nucleated Red Blood Cells % 0 % (-); Platelet Count 220 10^3/uL (130-400); Red Cell Dist. Width 12.9 % (11.5-14.5)
[2025-04-20 10:20] LABS: Urine Character Clear (Clear)
[2025-04-20 10:39] LABS: ALT (SGPT) 20 U/L (0-50); AST (SGOT) 24 U/L (17-59); Albumin 4.5 g/dl (3.5-5.0); Alkaline Phosphatase 92 U/L (38-126); Blood Urea Nitrogen 30 mg/dl (9-20); Calcium 10.1 mg/dl (8.4-10.2); Carbon Dioxide 32 mmol/L (22-30); Chloride 102 mmol/L (98-107); Glucose 96 mg/dl (70-99); HDL Cholesterol 55 mg/dl; LDL Cholesterol, Calculated 139 mg/dl; Potassium 4.8 mmol/L (3.5-5.1); Sodium 138 mmol/L (135-145); Total Protein 7.4 g/dl (6.3-8.2); Very Low Density Lipoprotein 42 mg/dl (0-30); eGFR 40.49
== END ==
LOC: RCS 08:56
PROVIDERS: ATTENDING PHYSICIAN Internal Medicine Geriatric Medicine
DX: R07.9 Chest pain, unspecified (principal); I50.20 Unspecified systolic (congestive) heart failure; M06.9 Rheumatoid arthritis, unspecified; E78.2 Mixed hyperlipidemia; N18.31 Chronic kidney disease, stage 3a; I10 Essential (primary) hypertension; N40.0 Benign prostatic hyperplasia without lower urinary tract symptoms; R06.02 Shortness of breath; R91.1 Solitary pulmonary nodule; E55.9 Vitamin D deficiency, unspecified; Z13.89 Encounter for screening for other disorder
CPT/HCPCS: 36415; 80053; 80061; 81003; 81015; 83880; 85025; 93225; 93226